=== PATIENT | female | born 1935 | race Caucasian/White ===

== ENCOUNTER 2017-07-27 16:21 | Inpatient (IN) ==
[2017-07-27] MEDS: Ipratropium/Albuterol Neb 3 ML IH SCH (21:04)
[2017-07-27] MEDS ORDERED: Ondansetron ODT 4 MG TAB.RAPDIS SL PRN (21:33)
[2017-07-27] MEDS ORDERED: Acetaminophen 325 MG TABLET PO PRN (21:33)
[2017-07-27] MEDS ORDERED: Furosemide 40 MG/4 ML VIAL IVP SCH (21:45)
[2017-07-27] MEDS ORDERED: Furosemide 40 MG/4 ML VIAL IVP ONE (21:59)
--- NOTE | 2017-07-27 22:00 | Internal Med History&Physical ---
<MaikshelleymarinaLion allen - Last Filed: 07/27/17 23:18> Date of Encounter: 07/27/17 Time of Encounter: 20:30 Assessment and Plan (1) NSTEMI (non-ST elevated myocardial infarction) Current visit: Yes Status: Acute Patient began to c/o chest pain while here. She describes it in the same manner as the last one she had a few days ago. Lasted 15-20 min. Atypical chest pain symptoms, however new troponin level has risen to 2.13 from 0.09. No active chest pain as of now. - Heparin drip. - Consult to cardiology - Nitro PRN. - Morphine PRN - Plavix. - Atenolol. (2) Chest pain Current visit: Yes Status: Acute Patient was c/o an episode of atypical chest pain from the prior day. EKG shows no ST-elevations or acute ischemic changes when compared to prior one. She did have an elevated troponin of 0.09, however than is more likely due to a combination of her acute CHF exacerbation and PNA. MINO score of 2 which signifies an 8% risk at 14 days of: all-cause mortality, new or recurrent DE, or severe recurrent ischemia requiring urgent revascularization. - Echocardiogram. Update: Patient began to feel chest pain again in the same manner as she described to me last time. It lasted for 15-20 minutes while resting. She did not have any active chest pain when I went to reexamine her, although she did have reproducible chest tenderness with palpation of R chest. She also admits ot tenderness with deep inspirations. Troponin level christiano to 2.13 from 0.09. NSTEMI. - consult to cardiology. - Heparin drip. - Nitro PRN. - Morphine PRN. - Plavix. Qualifiers: Chest pain type: unspecified Qualified Code(s): R07.9 - Chest pain, unspecified (3) Elevated troponin Current visit: No Status: Acute Troponin of 0.09 on arrival. No complaints of chest pain on arrival. Most likely secondary to setting of PNA and CHF. Update: Patient's set of troponin has risen to 2.13. She told me that she was experiencing chest tightness for about 15-20 minutes in the same location (R lower chest) as last time. I will place her on a heparin drip for now along with nitro PRN and a consult to cardiology. Will continue to monitor troponins and patient's status. (4) Acute CHF (congestive heart failure) Current visit: Yes Status: Acute Patient has been having increased SOB and productive coughing for the past week. She has bilateral pitting edema. No JVD. CXR shows collection of fluid in the R lung in the central sulcus. No recent echocardiogram found in records. - Fluid restriction diet. - Lasix 40 mg IV qd. - Monitor I/O. Qualifiers: Congestive heart failure type: unspecified congestive heart failure type Qualified Code(s): I50.9 - Heart failure, unspecified (5) Pneumonia Current visit: No Status: Acute Chest CTA shows new L onset pleural effusion. Patient displayed wheezing bilaterally on exam, most prominent in the L lower posterior region. Current febrile. Does not meet criteria for SIRS or sepsis. - Zosyn IV. Qualifiers: Pneumonia type: due to unspecified organism Laterality: bilateral Lung location: lower lobe of lung Qualified Code(s): J18.9 - Pneumonia, unspecified organism (6) COPD exacerbation Current visit: Yes Status: Acute Patient has extensive history of COPD. Has a productive cough that has been getting worse for past week. She has SOB with low O2 sats on arrival. Her acute exacerbation was probably caused by development of PNA. - Duonebs q4hr. - Solu-medrol 60 mg IV q6hr. (7) Hypertension Current visit: Yes Status: Chronic BP controlled at 113/90. - Continue home medication of atenolol. Qualifiers: Hypertension type: unspecified Qualified Code(s): I10 - Essential (primary ) hypertension (8) Hypomagnesemia Current visit: Yes Status: Acute Magnesium level at 1.5. - Mg 2g IV. - Recheck mg level. (9) Lung cancer Current visit: No Status: Acute Metastatic Adenocarcinoma of R lung. She is followed by oncology. Qualifiers: Laterality: right Lung location: unspecified part of lung Qualified Code( s): C34.91 - Malignant neoplasm of unspecified part of right bronchus or lung (10) DVT prophylaxis Current visit: Yes Status: Acute - Lovenox 30 mg sq qd. Update: switched to Heparin drip due to new development of NSTEMI. Internal Medicine - H&P: HPI Chief complaint: SOB, dyspnea, weakness Admitted From: Hospital to Hospital Transfer History of present illness: Ms. Darrel Maier is a 82 year old female with a PMH of emphysema. asthma, COPD , HTN, metastatic lung adenocarcinoma that presents for SOB, dyspnea, and weakness. Patient says that in the afternoon, she started to experience some exertional dyspnea while walking. She proceeded to the bathroom to sit down, but said she could never catch her breath or have the energy to get off the toilet. Her found her there after 5 hours. She denies any LOC, light- headedness, [place], or dizziness. She denies any chest or palpitations at the time. Although she normally has a chronic cough due to her COPD, she admits that this past week he coughing has been getting worse. She's been having a clear productive cough. She admits to a subjective fever. She says that she was hospitalized for PNA two weeks ago. She also says that her has been sick at home. Patient also told me that the day before she experienced an episode of epigastric pain that was sharp in nature, 5/10 in pain scale, non- radiation, lasted 2 hours, occurred with exertion, and was not relieved with rest. She presented to the ER with low O2 sat of 87%, tachypneic, and tachycardic. Patient did present with an elevated troponin of 0.09 and was transferred her from [facility] for further evaluation. She denies any dysuria, hematuria, constipation, hematochezia, diarrhea, nausea, or vomiting. Past Med Surg Social Fam HX - Past Medical History Medical history: arthritis, asthma, COPD, hypertension, kidney stones Psychiatric history: no psych history - Past Surgical History Surgical History: cataract, other - Social History Smoking Status: Never smoker Smokeless Tobacco Status: No Alcohol use: none Drug use: none - Family History Father Cause of : lung cancer Hx Family Endocrine Disorder: Yes (thyroid disease) Mother Cause of : lung cancer Hx Family Cardiac Disorders: Yes ([place]) Brother Adopted: No Cause of : lung cancer Internal Medicine - H&P: Meds Atenolol [Tenormin] 25 mg PO QAM 10/22/16 [History] Gabapentin [Neurontin] 200 mg PO HS 01/06/17 [History] Albuterol Sulfate [Ventolin Hfa] 2 puff IH Q4-6H PRN 03/12/17 [History] Budesonide/Formoterol 160/4.5 [Symbicort 160/4.5] 2 puff IH DAILY 03/12/17 [ History] Oxygen 1 each .ROUTE HS PRN 03/12/17 [History] Mirtazapine [Remeron] 15 mg PO HS 06/24/17 [History] Atenolol [Tenormin] 12.5 mg PO HS 07/08/17 [History] Calcium Carbonate [Calcium] 600 mg PO BID 07/08/17 [History] Cholecalciferol (D-3) [Vitamin D] 1,000 unit PO DAILY 07/08/17 [History] Multivitamin [One Daily Multivitamin] 1 tab PO DAILY 07/08/17 [History] Vitamin B Complex [B Complex] 1 tab PO DAILY 07/08/17 [History] Vitamin E Mixed [Vitamin E] 1,000 unit PO DAILY 07/08/17 [History] 3 Allergy/AdvReac Type Severity Reaction Status Date / Time aspirin Allergy Unknown BLEEDING Verified 07/08/17 11:49 ULCER lidocaine [From Lidoderm] AdvReac Redness of Verified 07/08/17 11:49 Skin All Systems PM: A 10-system review of systems was performed and is negative for pertinent findings except as documented above in the HPI. - Constitutional Constitutional: chills, fever(s), no falls - Cardiovascular Cardiovascular ROS IM: as per HPI, chest pain, dyspnea, dyspnea on exertion, no lightheadedness, no palpitations, no syncope - Respiratory Respiratory: cough, dyspnea on exertion, excessive phlegm production, no hemoptysis - Gastrointestinal Gastrointestinal: as per HPI, abdominal pain (One episode of epigastric pain. ) , no constipation, no diarrhea, no heartburn, no hematemesis, no hematochezia, no loose stools, no nausea, no vomiting - Genitourinary Genitourinary: no dysuria, no hematuria - Musculoskeletal Musculoskeletal ROS IM: muscle weakness - Neurological Neurological ROS: weakness, no confusion, no dizziness, no focal weakness, no headache(s), no numbness, no tingling - Constitutional Vitals: Temp Pulse Resp BP Pulse Ox 97.6 F 93 20 113/90 92 07/27/17 18:42 07/27/17 18:42 07/27/17 21:05 07/27/17 18:42 07/27/17 21:05 General appearance: Present: mild distress, A&O X 3, pleasant, underweight, answers questions appropriately - Respiratory Respiratory exam: Present: wheezes (Bilaterally. Most prevelant in L lower posterior lung field.) - Cardiovascular Cardiovascular exam: Present: tachycardia (Slightly tachycardic. ) - GI/Abdominal GI/Abdominal exam: Present: normal bowel sounds, soft. Absent: guarding, rebound, tenderness - Extremities Exam Extremities exam: Present: full ROM, normal capillary refill, pedal edema (+2 pitting edema bilaterally. ), radial pulses palpable and symmetrical. Absent: cyanotic, tenderness Additional comments: Pedal pulses intact and symmetrical bilaterally. - Neurological Exam Neurological exam: Present: alert, oriented X3, no focal deficits, strengths equal and symetr throughout. Absent: facial droop Additional comments: Unable to assess reflexes due to patient being tense. Internal Med - H&P Results - Labs CBC & Chem 7: 07/27/17 22:00 07/27/17 22:00 <Kiran Khoury - Last Filed: 07/28/17 03:44> Date of Encounter: 07/27/17 Internal Medicine - H&P: HPI History of present illness: Ms. Darrel Maier is a 82 year old female All Systems PM: A 10-system review of systems was performed and is negative for pertinent findings except as documented above in the HPI. - Constitutional Vitals: Temp Pulse Resp BP Pulse Ox 97.6 F 104 20 123/78 94 07/27/17 18:42 07/28/17 00:28 07/28/17 01:40 07/28/17 00:28 07/28/17 01:40 Internal Med - H&P Results - Labs CBC & Chem 7: 07/27/17 22:00 07/27/17 22:00 Labs: Short CBC 07/27/17 Range/Units 22:00 WBC 8.9 (4.3-11.1) K/mcL Hgb 11.4 L (11.5-15.4) g/dL Hct 37.4 (35.3-44.9) % Plt Count 270 (140-400) K/mcL Neutrophils # 8.1 (1.6-8.9) K/mcL BMP 07/27/17 22:00 Sodium 139 Potassium 4.4 Chloride 103 Carbon Dioxide 26 BUN 15 Creatinine 0.75 Glucose 96 Calcium 8.1 L Cardiac Enzymes 07/27/17 Range/Units 22:00 Troponin I 2.13 H* (0-0.03) ng/mL - Attending Attestation I have seen patient on July 27. Patient was seen independently and personally along with resident and an H&P reviewed and plan discussed. Patient has presented with shortness of breath. sHe is complaining of right sided subcostal chest pain which seems continuous and it is not pleuritic in nature. Chest examination showed some wheezing and scattered rhonchi. No significant leg edema. Her troponin have escalated suspect non-STEMI contributing to CHF as well as pneumonia and COPD exacerbation.
[2017-07-27 22:09] LABS: Basophils % 0.1 %; Eosinophils % 0.1 %; Hematocrit 37.4 % (35.3-44.9); Hemoglobin 11.4 g/dL (11.5-15.4); Immature Granulocytes % 0.5 % (0-4); Lymphocytes # 0.2 K/mcL (0.6-4.6); Mean Corpuscular HGB Conc 30.5 g/dL (31.6-35.5); Mean Corpuscular Hemoglobin 28.2 pg (28.0-33.3); Mean Corpuscular Volume 92.6 fL (83.0-100.0); Mean Platelet Volume 9.5 fL (9.4-12.4); Monocytes # 0.6 K/mcL (0.0-1.3); Monocytes % 6.9 %; Neutrophils # 8.1 K/mcL (1.6-8.9); Platelet Count 270 K/mcL (140-400); Red Blood Count 4.04 M/mcL (3.82-4.97); Red Cell Distribution Width 13.9 % (11.5-14.5); Segmented Neutrophils % 90.4 %
[2017-07-27 22:20] LABS: BUN/Creatinine Ratio 20 (6-26); Blood Urea Nitrogen 15 mg/dL (7-20); Calcium 8.1 mg/dL (8.6-10.8); Carbon Dioxide 26 mEq/L (19-29); Chloride 103 mEq/L (98-109); Glucose 96 mg/dL (70-99); Osmolality,Calculated 289 (280-300); Potassium 4.4 mEq/L (3.5-4.5); Sodium 139 mEq/L (136-145); eGFR For African Americans > 60 (> 60); eGFR For Non-African Americans > 60 (> 60)
[2017-07-27 22:29] LABS: Hypersegmented Neutrophils Present (Not Present); Platelet Estimate Normal (Normal)
[2017-07-27] MEDS: Gabapentin 100 MG CAPSULE PO SCH (22:40)
[2017-07-27] MEDS: Mirtazapine 15 MG TABLET PO SCH (22:41)
[2017-07-27] MEDS: Vitamin B Complex/Vit C/Vit E 1 EACH TABLET PO SCH (22:44)
[2017-07-27] MEDS: Cholecalciferol (D-3) 1,000 UNIT TABLET PO SCH (22:44)
[2017-07-27] MEDS ORDERED: Nitroglycerin 0.4 MG TAB.SUBL SL PRN (23:06)
[2017-07-27] MEDS ORDERED: Heparin 25,000 UNIT/500 ML D5W 25,000 UNIT/500 ML BAG IVC SCH ×2 (23:15→23:45)
[2017-07-27] MEDS ORDERED: *HR* Morphine 2 MG/ML SYRINGE IVP PRN (23:17)
[2017-07-27] MEDS ORDERED: Naloxone 0.4 MG/ML INJ IVP PRN (23:17)
[2017-07-27] MEDS ORDERED: *HR* Heparin 5,000 UNIT/ML VIAL IVP ONE (23:42)
[2017-07-27] MEDS ORDERED: *HR* Heparin 5,000 UNIT/ML VIAL IVP PRN (23:42)
[2017-07-27] MEDS: Multivit/Ca/Min/Fe/FA 1 TAB TABLET PO SCH (23:53)
[2017-07-27] MEDS: methylPREDNISolone 125 MG/2 ML VIAL IVP SCH (23:53)
[2017-07-28 00:04] LABS: INR 1.2; Prothrombin Time 12.7 Seconds (9.4-12.1)
[2017-07-28 00:06] LABS: Activated Partial Thrombo Time 27.7 Seconds (26.0-36.0)
[2017-07-28] MEDS: Piperacillin/Tazobactam 3.375 GM/200 ML BAG IVPB SCH ×2 (00:48→09:13)
[2017-07-28] MEDS: Ipratropium/Albuterol Neb 3 ML IH SCH ×7 (01:40→23:38)
[2017-07-28] MEDS ORDERED: *HR* Enoxaparin 30 MG/0.3 ML SYRINGE SQ SCH (06:00)
[2017-07-28] MEDS: methylPREDNISolone 125 MG/2 ML VIAL IVP SCH (06:22)
[2017-07-28] MEDS: *HR* Heparin 5,000 UNIT/ML VIAL IVP PRN ×2 (07:02→14:27)
[2017-07-28] MEDS: Multivit/Ca/Min/Fe/FA 1 TAB TABLET PO SCH (09:05)
[2017-07-28] MEDS: Cholecalciferol (D-3) 1,000 UNIT TABLET PO SCH (09:05)
[2017-07-28] MEDS: Vitamin B Complex/Vit C/Vit E 1 EACH TABLET PO SCH (09:06)
--- NOTE | 2017-07-28 09:51 | Cardiology Consult Note ---
Date of Encounter: 07/28/17 Time of Encounter: 09:51 Assessment and Plan (1) NSTEMI (non-ST elevated myocardial infarction) Current Visit: Yes Status: Acute Troponins 0.09, 2.13, 1.53, 1.25--downtrending. In setting of PNA/COPD exacerbation. Hypoxic SpO2 87% on admission, tachypnea, tachycardia. However, would not have expected troponin to rise to extent of 2.13 if secondary to demand ischemia only. No significant EKG changes. Worsening dyspnea, weakness. Reports episodic chest pain under right breast that feels like a muscle spasm. Currently chest pain free. Echo resulted--LVEF 65%, normal wall motion, Mild left ventricular diastolic dysfunction, Normal right ventricular structure and function, Mild tricuspid regurgitation, Mild pulmonary hypertension. BP as low as 80s systolic this AM. Hold Lasix and BB. Code status is DNR-CC. Discussed potential LHC, which pt is agreeable to having. Currently with conversational dyspnea. Continue heparin gtt, start Statin, BB as BP tolerates, Plavix was started. ASA not started due to listed allergy--reaction listed is bleeding ulcers. Will need to further discuss this reaction prior to invasive evaluation. Possible LHC once respiratory status allow. Will further discuss with Dr. Pa as well. (2) Hypotension Current Visit: Yes Status: Acute BP as low as 85/59. Improved at bedside to 90s. Recommend holding Lasix and BB. Qualifiers: Hypotension type: unspecified hypotension type Qualified Code(s): I95.9 - Hypotension, unspecified Discussion w patient/family: The assessment and plan as outlined above was discussed with the patient and/or family members who expressed understanding and agreement. All questions were answered. Thank you for involving us in the care of your patient. Please call with any questions. I will discuss all the above with Dr. Pa and make changes as necessary. History of Present Illness Consult date: 07/28/17 Requesting physician: Kiran Khoury Consult reason: NSTEMI Chief complaint: dyspnea History of present illness: Ms. Darrel Maier is a 82 year old female with a PMH of emphysema, asthma, COPD , HTN, metastatic lung adenocarcinoma s/p completion of chemoradiation 02/2017 that presented to ED for dyspnea and weakness. Patient says that in the afternoon, she started to experience some exertional dyspnea while walking. She proceeded to the bathroom to sit down, but said she could never catch her breath or have the energy to get off the toilet. Her found her there after 5 hours. She denies any syncope or chest pain. Although she normally has a chronic cough due to her COPD, she admits that this past week he coughing has been getting worse. She's been having a clear productive cough. She reports worsening lower extremity edema over the past week. She admits to a subjective fever. She says that she was hospitalized for PNA two weeks ago. She also says that her has been sick at home. Patient reported the day before she experienced an episode of pain under her right breast that felt like a muscle spasm. She presented to the ER with low O2 sat of 87%, tachypneic, and tachycardic. She is being treated for PNA and COPD exacerbation. Troponins 0.09 , 2.13 1.53, 1.25. Cardiology consulted for further recommendations. She is currently chest pain free. Echo resulted-- LVEF 65%, Mild left ventricular diastolic dysfunction, Normal right ventricular structure and function, Mild tricuspid regurgitation, Mild pulmonary hypertension. Chest CTA negative for PE , stable mild cardiomegaly, mild emphysema. CXR stable small to moderate right pleural effusion. There is also stable appearance to consolidative changes to the right mid to lower lung zones. These could reflect posttreatment changes relating to radiation therapy given clinical history and relative stability from 06/19/2017. It would be difficult to exclude other superimposed etiologies such as infectious or inflammatory infiltrate and/or neoplastic process. Past Med Surg Social Fam HX - Past Medical History Medical history: arthritis, asthma, COPD, hypertension, kidney stones Psychiatric history: no psych history - Past Surgical History Surgical History: cataract, other - Social History Smoking Status: Never smoker Smokeless Tobacco Status: No Alcohol use: none Drug use: none - Family History Father Cause of : lung cancer Hx Family Endocrine Disorder: Yes (thyroid disease) Mother Cause of : lung cancer Hx Family Cardiac Disorders: Yes ([place]) Brother Adopted: No Cause of : lung cancer Medications and Allergies Atenolol [Tenormin] 25 mg PO QAM 10/22/16 [History] Gabapentin [Neurontin] 200 mg PO HS 01/06/17 [History] Albuterol Sulfate [Ventolin Hfa] 2 puff IH Q4-6H PRN 03/12/17 [History] Budesonide/Formoterol 160/4.5 [Symbicort 160/4.5] 2 puff IH DAILY 03/12/17 [ History] Oxygen 1 each .ROUTE HS PRN 03/12/17 [History] Mirtazapine [Remeron] 15 mg PO HS 06/24/17 [History] Atenolol [Tenormin] 12.5 mg PO HS 07/08/17 [History] Calcium Carbonate [Calcium] 600 mg PO BID 07/08/17 [History] Cholecalciferol (D-3) [Vitamin D] 1,000 unit PO DAILY 07/08/17 [History] Multivitamin [One Daily Multivitamin] 1 tab PO DAILY 07/08/17 [History] Vitamin B Complex [B Complex] 1 tab PO DAILY 07/08/17 [History] Vitamin E Mixed [Vitamin E] 1,000 unit PO DAILY 07/08/17 [History] 3 Allergy/AdvReac Type Severity Reaction Status Date / Time aspirin Allergy Unknown BLEEDING Verified 07/08/17 11:49 ULCER lidocaine [From Lidoderm] AdvReac Redness of Verified 07/08/17 11:49 Skin All Systems Review: A 10-system review of systems was performed and is negative for pertinent findings except as documented above in the HPI. - Constitutional Constitutional: weakness - Cardiovascular Cardiovascular: as per HPI, chest pain at rest, dyspnea at rest, dyspnea on exertion, leg edema - Respiratory Respiratory: cough, dyspnea Physical Examination Vital Signs, Last 4 Hours Temp Pulse Resp BP Pulse Ox 07/28/17 07:34 20 95 07/28/17 06:31 98.1 F 99 16 85/59 95 Vital Signs Temp Pulse Resp BP Pulse Ox 07/28/17 07:34 20 95 07/28/17 06:31 98.1 F 99 16 85/59 95 07/28/17 04:55 20 91 07/28/17 03:50 97 20 101/66 99 07/28/17 01:40 20 94 07/28/17 00:28 104 20 123/78 93 07/27/17 21:05 20 92 07/27/17 18:42 97.6 F 93 17 113/90 Intake and Output 07/27/17 07/28/1717 23:59 07:59 15:59 Intake Total 266 / 266 0 / 0 Output Total 1100 / 1100 2099 / 2099 Balance -1100 / -1100 -1834 / -1834 0 / 0 Intake: IV Fluids 266 / 266 Heparin 25,000 UNIT/500 ML D5W 66 / 66 25,000 unit In 500 ml @ 12 UNIT /KG/HR 10.896 mls/hr IVC .Q24H [facility] Rx#:[id number] Zosyn Premix 3.375 GM/200 ML 3. 200 / 200 375 gm In 200 ml @ 50 mls/hr IVPB Q8HR [facility] Rx#:[id number] Oral 0 / 0 Output: Urine 1100 / 1100 Catheter 2099 / 2099 Urethral (Alan) 850 / 850 Other: Meal Breakfast Percent of Meal Consumed 0% Stool Size Large Stool Consistency formed Stool Color Brown # Voids 1 # Bowel Movements 1 Weight 45.4 kg General: Conversant, Other (conversational dyspnea) HEENT: Atraumatic, Normocephaly, Mucus Membranes Moist Neck: Normal carotid pulses Cardiac: Reg Rate and Rhythm, Normal S1 and S2, No Murmur Lungs: Other (diminished) Neuro: Alert and responsive, No focal deficits noted Abdomen: Soft, Non-Tender Skin: No rashes noted on visualized skin Musculoskeletal: No Chest Wall Tenderness Extremities: No Clubbing, No Cyanosis, Other (trace LE edema) Results 07/27/17 22:00 07/27/17 22:00 Lab Results 07/27/17 07/27/17 07/27/17 22:00 22:00 22:00 WBC 8.9 Hgb 11.4 L Hct 37.4 Plt Count 270 INR APTT Sodium 139 Potassium 4.4 Chloride 103 Carbon Dioxide 26 BUN 15 Creatinine 0.75 Glucose 96 Calcium 8.1 L Magnesium 1.5 L Troponin I 07/27/17 07/27/17 07/28/17 22:00 22:00 03:31 WBC Hgb Hct Plt Count INR 1.2 APTT 27.7 Sodium Potassium Chloride Carbon Dioxide BUN Creatinine Glucose Calcium Magnesium Troponin I 2.13 H* 1.53 H* 07/28/17 07/28/17 07/28/17 03:31 05:57 05:57 WBC Hgb Hct Plt Count INR APTT 50.0 H D Sodium Potassium Chloride Carbon Dioxide BUN Creatinine Glucose Calcium Magnesium 2.0 Troponin I 1.25 H* Short CBC 07/27/17 Range/Units 22:00 WBC 8.9 (4.3-11.1) K/mcL Hgb 11.4 L (11.5-15.4) g/dL Hct 37.4 (35.3-44.9) % Plt Count 270 (140-400) K/mcL Neutrophils # 8.1 (1.6-8.9) K/mcL BMP 07/27/17 Range/Units 22:00 Sodium 139 (136-145) mEq/L Potassium 4.4 (3.5-4.5) mEq/L Chloride 103 (98-109) mEq/L Carbon Dioxide 26 (19-29) mEq/L BUN 15 (7-20) mg/dL Creatinine 0.75 (0.57-1.11) mg/dL Glucose 96 (70-99) mg/dL Calcium 8.1 L (8.6-10.8) mg/dL Cardiac Enzymes 07/28/17 07/28/17 07/27/17 Range/Units 05:57 03:31 22:00 Troponin I 1.25 H* 1.53 H* 2.13 H* (0-0.03) ng/mL Impressions Echocardiogram 07/28/17 21:44 Impressions: LVEF 65%. Mild left ventricular diastolic dysfunction. Normal right ventricular structure and function. Mild tricuspid regurgitation. Mild pulmonary hypertension. Left Ventricular Wall Motion: Rest Echo Findings All wall segments showed normal motion. Findings: Study Quality * Technically adequate exam. ECG Findings * Sinus tachycardia. Left Ventricle * LVEF 65%. * Mild left ventricular diastolic dysfunction. * Normal LV size and wall thickness. Right Ventricle * Normal right ventricular structure and function. Left Atrium * Normal left atrial size. Right Atrium * Normal right atrial size. Aortic Valve * No aortic regurgitation. * Aortic valve not well visualized. * No aortic stenosis. Mitral Valve * No mitral regurgitation. * No mitral stenosis. * Mildly sclerotic mitral valve leaflets. Tricuspid Valve * Normal tricuspid valve structure. * Mild tricuspid regurgitation. * Estimated RA pressure is 3 mmHg. * Estimated RVSP is 45 mmHg. * Mild pulmonary hypertension. Pulmonic Valve * Pulmonic valve is not well visualized. * No pulmonic stenosis. * No pulmonic regurgitation. Pulmonary Artery * Pulmonary artery not well visualized. Aorta * Not well visualized. Pericardium * There is no pericardial effusion present. Interatrial Septum * No evidence of PFO by color Doppler. IVC * Normal IVC dimensions and inspiratory collapse. Active Medications Acetaminophen (Tylenol) 650 mg PO Q6HR PRN PRN Reason: Mild Pain (1-3) Stop: 01/26/18 21:34 Albuterol/Ipratropium (Duoneb) 3 ml IH [id number] [facility] Stop: 01/26/18 21:01 Last Admin: 07/28/17 07:33 Dose: 3 ml Atenolol (Tenormin) 12.5 mg PO HS [facility] Stop: 01/26/18 22:01 Last Admin: 07/27/17 22:45 Dose: Not Given Atenolol (Tenormin) 25 mg PO QAM [facility] Stop: 01/26/18 22:01 Last Admin: 07/27/17 22:45 Dose: Not Given Calcium Carbonate (Tums) 500 mg PO BID [facility] Stop: 01/26/18 22:01 Last Admin: 07/28/17 09:05 Dose: 500 mg Clopidogrel Bisulfate (Plavix) 75 mg PO DAILY [facility] Stop: 01/26/18 21:46 Last Admin: 07/28/17 09:05 Dose: 75 mg Docusate Sodium (Colace) 100 mg PO BID PRN PRN Reason: Constipation Stop: 01/26/18 21:34 Furosemide (Lasix) 40 mg IVP DAILY [facility] Stop: 01/26/18 21:46 Last Admin: 07/27/17 22:40 Dose: Not Given Gabapentin (Neurontin) 200 mg PO HS [facility] Stop: 01/26/18 22:01 Last Admin: 07/27/17 22:40 Dose: 200 mg Heparin Sodium (Porcine) (Heparin) 2,700 unit 60 unit/kg (2700 unit) IVP Q6HR PRN PRN Reason: SEE COMMENTS Stop: 01/26/18 23:43 Heparin Sodium (Porcine) (Heparin) 1,400 unit 30 unit/kg (1400 unit) IVP Q6H PRN PRN Reason: SEE COMMENTS Stop: 01/26/18 23:43 Last Admin: 07/28/17 07:02 Dose: 1,400 unit Piperacillin Sod/Tazobactam Sod (Zosyn Premix 3.375 Gm/200 Ml) 3.375 gm in 200 mls @ 50 mls/hr IVPB Q8HR [facility] Stop: 01/27/18 00:01 Last Admin: 07/28/17 09:13 Dose: 50 mls/hr Heparin Sodium/Dextrose (Heparin 25,000 Unit/500 Ml D5w) 25,000 unit in 500 mls @ 10.896 mls/hr IVC .Q24H [facility]; 12 UNIT/KG/HR PRN Reason: Protocol Stop: 01/26/18 23:46 Last Titration: 07/28/17 06:57 Dose: 14.09 unit/kg/hr, 12.8 mls/hr Methylprednisolone (Solu-Medrol) 60 mg IVP Q6HR [facility] Stop: 01/27/18 00:01 Last Admin: 07/28/17 06:22 Dose: 60 mg Mirtazapine (Remeron) 15 mg PO HS [facility] Stop: 01/26/18 22:01 Last Admin: 07/27/17 22:41 Dose: 15 mg Morphine Sulfate (Morphine Sulfate) 2 mg IVP Q4HR PRN PRN Reason: Severe Pain (7-10) Stop: 01/26/18 23:18 Multivitamins/Calcium (Thera M Plus) 1 tab PO DAILY [facility] Stop: 01/26/18 22:01 Last Admin: 07/28/17 09:05 Dose: 1 tab Naloxone HCl (Narcan) 0.4 mg IVP Q2MIN PRN PRN Reason: Opioid Reversal Stop: 01/26/18 23:18 Nitroglycerin (Nitroglycerin) 0.4 mg SL Q5MIN PRN PRN Reason: Chest Pain Stop: 01/26/18 23:07 Ondansetron HCl (Zofran Odt) 4 mg SL Q8HR PRN PRN Reason: Nausea And Vomiting Stop: 01/26/18 21:34 Vitamin B Complex/Vit C/Vit E (Stresstab) 1 each PO DAILY [facility] Stop: 01/26/18 22:01 Last Admin: 07/28/17 09:06 Dose: 1 each Vitamin D (Vitamin D) 1,000 unit PO DAILY [facility] Stop: 01/26/18 22:01 Last Admin: 07/28/17 09:05 Dose: 1,000 unit Vitamin E (Vitamin E) 1,000 unit PO DAILY [facility] Stop: 01/26/18 22:01 Last Admin: 07/28/17 09:29 Dose: Not Given - Imaging and Cardiology Echo: report reviewed - EKG Interpretation EKG results cardiology: personally reviewed Consult Discharge Plan - Plan Referrals: Thuan Levine MD [Primary Care Provider] - 08/04/17 3:30 pm
--- NOTE | 2017-07-28 12:38 | Internal Med Progress Note ---
Date of Encounter: 07/28/17 Time of Encounter: 10:00 - Assessment and plan (1) NSTEMI (non-ST elevated myocardial infarction) Current Visit: Yes Status: Acute Assessment and plan: The patient has been started on a heparin drip. She is on a beta jatin and Plavix and statin. Cardiology is following with plans for left heart catheterization at some point after she is done with the acute issues over pneumonia. (2) Pneumonia Current Visit: Yes Status: Acute Assessment and plan: The patient's culture have been negative. She is afebrile. She has no white count. She did have infiltrate on her CT scan that was done at outside facility. For now switch her antibiotics to IV Levaquin. Continue to monitor follow-up on the cultures. Check urine strep and urine Legionella. Will check sputum culture if she is able to give us a sample. Qualifiers: Pneumonia type: due to unspecified organism Laterality: bilateral Lung location: unspecified part of lung Qualified Code(s): J18.9 - Pneumonia, unspecified organism (3) Acute CHF (congestive heart failure) Current Visit: Yes Status: Acute Assessment and plan: The patient has been on diuresis. She is gotten Lasix and diuresed well. We will continue to monitor I& rn lpn cna following. Echo is done O's. Hold her Lasix this morning secondary to low blood pressure. Try to wean her off oxygen as tolerated. We will continue with nebulizer treatment. Echo was done with EF 65% and mild diastolic dysfunction as well as moderate tricuspid regurgitation and mild pulmonary hypertension. Qualifiers: Congestive heart failure type: unspecified congestive heart failure type Qualified Code(s): I50.9 - Heart failure, unspecified (4) Hypotension Current Visit: Yes Status: Acute Assessment and plan: Hold atenolol as well as Lasix this morning. Qualifiers: Hypotension type: unspecified hypotension type Qualified Code(s): I95.9 - Hypotension, unspecified (5) DVT prophylaxis Current Visit: Yes Status: Acute Assessment and plan: Heparin drip. - Subjective Interval history: No acute events. The patient was admitted last night with NSTEMI as well as pneumonia and acute CHF. She currently has no chest pain. She says her swelling in the lower extremities much improved. She diuresed well overnight. Her blood pressure is on the lower side this morning. She was seen by cardiology ready. She is on a heparin drip. She has been afebrile. - Constitutional Vitals: Temp Pulse Resp BP Pulse Ox 97.9 F 102 16 96/44 94 07/28/17 11:09 07/28/17 11:09 07/28/17 11:09 07/28/17 11:09 07/28/17 11:09 General appearance: Present: mild distress, A&O X 3, pleasant, underweight, answers questions appropriately Exam: GEN: NAD CVS: RRR. S1, S2, No m/r/g RESP: Diminished. Bibasilar crackles. ABD: Soft, NT, ND, +BS EXT: Trace edema. edema. 2+ DP, No rashes NEURO: Nonfocal Internal Medicine: Result - Labs CBC & Chem 7: 07/27/17 22:00 07/27/17 22:00 Labs: Short CBC 07/27/17 Range/Units 22:00 WBC 8.9 (4.3-11.1) K/mcL Hgb 11.4 L (11.5-15.4) g/dL Hct 37.4 (35.3-44.9) % Plt Count 270 (140-400) K/mcL Neutrophils # 8.1 (1.6-8.9) K/mcL BMP 07/27/17 22:00 Sodium 139 Potassium 4.4 Chloride 103 Carbon Dioxide 26 BUN 15 Creatinine 0.75 Glucose 96 Calcium 8.1 L Cardiac Enzymes 07/27/17 07/28/17 07/28/17 Range/Units 22:00 03:31 05:57 Troponin I 2.13 H* 1.53 H* 1.25 H* (0-0.03) ng/mL - ABG Interpretation ABG results: PT/INR, D-dimer PT 12.7 Seconds (9.4-12.1) H 07/27/17 22:00 - Impressions Impressions Echocardiogram 07/28/17 21:44 Impressions: LVEF 65%. Mild left ventricular diastolic dysfunction. Normal right ventricular structure and function. Mild tricuspid regurgitation. Mild pulmonary hypertension. Left Ventricular Wall Motion: Rest Echo Findings All wall segments showed normal motion. Findings: Study Quality * Technically adequate exam. ECG Findings * Sinus tachycardia. Left Ventricle * LVEF 65%. * Mild left ventricular diastolic dysfunction. * Normal LV size and wall thickness. Right Ventricle * Normal right ventricular structure and function. Left Atrium * Normal left atrial size. Right Atrium * Normal right atrial size. Aortic Valve * No aortic regurgitation. * Aortic valve not well visualized. * No aortic stenosis. Mitral Valve * No mitral regurgitation. * No mitral stenosis. * Mildly sclerotic mitral valve leaflets. Tricuspid Valve * Normal tricuspid valve structure. * Mild tricuspid regurgitation. * Estimated RA pressure is 3 mmHg. * Estimated RVSP is 45 mmHg. * Mild pulmonary hypertension. Pulmonic Valve * Pulmonic valve is not well visualized. * No pulmonic stenosis. * No pulmonic regurgitation. Pulmonary Artery * Pulmonary artery not well visualized. Aorta * Not well visualized. Pericardium * There is no pericardial effusion present. Interatrial Septum * No evidence of PFO by color Doppler. IVC * Normal IVC dimensions and inspiratory collapse. Consult Discharge Plan - Plan Referrals: Thuan Levine MD [Primary Care Provider] - 08/04/17 3:30 pm
[2017-07-28] MEDS: Levofloxacin 500 MG/100 ML 500 MG/100 ML BAG IVPB SCH (12:40)
[2017-07-28] MEDS: Gabapentin 100 MG CAPSULE PO SCH (21:40)
[2017-07-28] MEDS: Mirtazapine 15 MG TABLET PO SCH (21:40)
[2017-07-29] MEDS: Ipratropium/Albuterol Neb 3 ML IH SCH ×6 (03:31→23:10)
[2017-07-29 06:15] LABS: Basophils % 0.1 %; Eosinophils % 0.2 %; Hemoglobin 9.5 g/dL (11.5-15.4); Immature Granulocytes % 0.3 % (0-4); Lymphocytes # 0.3 K/mcL (0.6-4.6); Lymphocytes % 3.2 %; Mean Corpuscular HGB Conc 30.6 g/dL (31.6-35.5); Mean Corpuscular Hemoglobin 28.3 pg (28.0-33.3); Mean Corpuscular Volume 92.3 fL (83.0-100.0); Mean Platelet Volume 10.4 fL (9.4-12.4); Neutrophils # 7.4 K/mcL (1.6-8.9); Platelet Count 245 K/mcL (140-400); Red Blood Count 3.36 M/mcL (3.82-4.97); Red Cell Distribution Width 14.3 % (11.5-14.5); Segmented Neutrophils % 85.2 %
[2017-07-29 06:29] LABS: BUN/Creatinine Ratio 24 (6-26); Blood Urea Nitrogen 17 mg/dL (7-20); Calcium 8.1 mg/dL (8.6-10.8); Carbon Dioxide 33 mEq/L (19-29); Chloride 102 mEq/L (98-109); Glucose 92 mg/dL (70-99); Osmolality,Calculated 295 (280-300); Phosphorous 3.2 mg/dL (2.3-4.7); Potassium 3.7 mEq/L (3.5-4.5); Sodium 142 mEq/L (136-145); eGFR For African Americans > 60 (> 60); eGFR For Non-African Americans > 60 (> 60)
[2017-07-29] MEDS: Vitamin B Complex/Vit C/Vit E 1 EACH TABLET PO SCH (09:43)
[2017-07-29] MEDS: Cholecalciferol (D-3) 1,000 UNIT TABLET PO SCH (09:44)
[2017-07-29] MEDS: Multivit/Ca/Min/Fe/FA 1 TAB TABLET PO SCH (09:44)
--- NOTE | 2017-07-29 10:11 | Cardiology Progress Note ---
Date of Encounter: 07/29/17 Time of Encounter: 10:10 Assessment and Plan (1) NSTEMI (non-ST elevated myocardial infarction) Current Visit: Yes Status: Acute Troponins 0.09, 2.13, 1.53, 1.25--downtrending. In setting of PNA/COPD exacerbation. Hypoxic SpO2 87% on admission, tachypnea, tachycardia. However, would not have expected troponin to rise to extent of 2.13 if secondary to demand ischemia only. No significant EKG changes. Worsening dyspnea, weakness. Reports episodic chest pain under right breast that feels like a muscle spasm. Currently chest pain free. Echo -LVEF 65%, normal wall motion, mild LVDD, Normal right ventricular structure and function, Mild TR, mild phtn. BP as low as 70s systolic this AM. Hold Lasix and BB until BP tolerates. Code status is DNR-CC. Dr. Pa further discussed with pt yesterday and pt wanted medical management, declined invasive procedures. Today, she states she may want to have a LHC. Will have pt further re-discuss with Dr. Pa on LHC vs medical management. Has been on heparin gtt >24 hours. HGB dropped from 11.4 to 9.5. No evidence of bleeding. Will stop heparin gtt given anemia and switch to subq DVT prophylaxis. Continue Statin, BB as BP tolerates, Plavix was started. ASA not started due to listed allergy--reaction listed is bleeding ulcers. If pt wants invasive evaluation can consider trial of daily ASA. (2) Hypotension Current Visit: Yes Status: Resolved BP as low as 70s/50s this AM. Asymptomatic. Recommend holding Lasix and BB until BP tolerates. Qualifiers: Hypotension type: unspecified hypotension type Qualified Code(s): I95.9 - Hypotension, unspecified (3) PAF (paroxysmal atrial fibrillation) Current Visit: Yes Status: Acute Two brief runs of PAF noted on tele. No hx of PAF, in setting of PNA and NSTEMI. Currently on heparin gtt, but HGB has dropped from 11.4 to 9.5. In setting of anemia, will stop heparin gtt. Start subq DVT prophylaxis. Continue Plavix. BP currently not tolerating BB. Echo EF preserved. No severe valvular dysfunction. [id number] 3 (Age, Female). High CVA risk, but the two episodes were very brief. Given anemia, continue Plavix only for now. 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 Discussion w patient/family: The assessment and plan as outlined above was discussed with the patient and/or family members who expressed understanding and agreement. All questions were answered. Thank you for involving us in the care of your patient. Please call with any questions. I will discuss all the above with Dr. Pa and make changes as necessary. Subjective Principal diagnosis: NSTEMI Interval history: Pt denies chest pain overnight, still reports dyspnea, hypotensive this AM but denies dizziness or lightheadedness. Objective Vital Signs, Last 4 Hours Temp Pulse Resp BP Pulse Ox 07/29/17 07:29 18 98 07/29/17 06:57 97.9 F 93 16 84/50 95 Vital Signs Temp Pulse Resp BP Pulse Ox 07/29/17 07:29 18 98 07/29/17 06:57 97.9 F 93 16 84/50 95 07/29/17 04:06 100 16 87/53 99 07/29/17 03:32 18 100 07/29/17 00:09 101 18 95/63 99 07/28/17 23:40 20 100 07/28/17 21:40 99 07/28/17 20:34 18 95 07/28/17 19:38 98.3 F 113 19 82/53 93 07/28/17 15:50 18 93 07/28/17 14:48 98.3 F 107 16 114/78 96 07/28/17 11:09 97.9 F 102 16 96/44 94 Intake and Output 07/28/17 07/29/17 07/29/17 23:59 07:59 15:59 Intake Total 92 / 92 0 / 0 480 / 480 Balance 92 / 92 0 / 0 480 / 480 Intake: IV Fluids 92 / 92 0 / 0 Heparin 25,000 UNIT/500 ML D5W 92 / 92 0 / 0 25,000 unit In 500 ml @ 12 UNIT /KG/HR 10.896 mls/hr IVC .Q24H [facility] Rx#:[id number] Oral 480 / 480 Other: Meal Breakfast Percent of Meal Consumed 50% General: Conversant, No Apparent Distress HEENT: Atraumatic, Normocephaly, Mucus Membranes Moist Neck: Normal carotid pulses Cardiac: Reg Rate and Rhythm, Normal S1 and S2, No Murmur Lungs: Other (diminished, mild bibasilar crackles) Neuro: Alert and responsive, No focal deficits noted Abdomen: Soft, Non-Tender Skin: No rashes noted on visualized skin Musculoskeletal: No Chest Wall Tenderness Extremities: No Clubbing, No Cyanosis, No Edema, Normal Pulses Results 07/29/17 04:57 07/29/17 04:57 Lab Results 07/28/17 07/28/17 07/29/17 12:07 20:23 04:57 WBC 8.7 Hgb 9.5 L D Hct 31.0 L Plt Count 245 APTT 56.9 H 73.6 H Sodium Potassium Chloride Carbon Dioxide BUN Creatinine Glucose Calcium 07/29/17 07/29/17 04:57 04:57 WBC Hgb Hct Plt Count APTT 84.2 H Sodium 142 Potassium 3.7 Chloride 102 Carbon Dioxide 33 H BUN 17 Creatinine 0.70 Glucose 92 Calcium 8.1 L Short CBC 07/29/17 Range/Units 04:57 WBC 8.7 (4.3-11.1) K/mcL Hgb 9.5 L D (11.5-15.4) g/dL Hct 31.0 L (35.3-44.9) % Plt Count 245 (140-400) K/mcL Neutrophils # 7.4 (1.6-8.9) K/mcL BMP 07/29/17 Range/Units 04:57 Sodium 142 (136-145) mEq/L Potassium 3.7 (3.5-4.5) mEq/L Chloride 102 (98-109) mEq/L Carbon Dioxide 33 H (19-29) mEq/L BUN 17 (7-20) mg/dL Creatinine 0.70 (0.57-1.11) mg/dL Glucose 92 (70-99) mg/dL Calcium 8.1 L (8.6-10.8) mg/dL Impressions Chest X-Ray 07/28/17 18:53 IMPRESSION: Persistent basilar airspace disease and effusion greater on the right presumably representing pneumonia. This could be postobstructive and is superimposed upon significant interstitial fibrosis and emphysema. D/ / Sandro Gordon MD / Sandro Gordon MD Interpreting Provider: Sandro Gordon MD Active Medications Acetaminophen (Tylenol) 650 mg PO Q6HR PRN PRN Reason: Mild Pain (1-3) Stop: 01/26/18 21:34 Albuterol/Ipratropium (Duoneb) 3 ml IH [id number] [facility] Stop: 01/26/18 21:01 Last Admin: 07/29/17 07:27 Dose: 3 ml Atenolol (Tenormin) 12.5 mg PO HS [facility] Stop: 01/26/18 22:01 Last Admin: 07/28/17 21:40 Dose: Not Given Atenolol (Tenormin) 25 mg PO QAM [facility] Stop: 01/26/18 22:01 Last Admin: 07/29/17 09:39 Dose: Not Given Atorvastatin Calcium (Lipitor) 40 mg PO HS [facility] Stop: 01/27/18 21:01 Last Admin: 07/28/17 21:40 Dose: 40 mg Calcium Carbonate (Tums) 500 mg PO BID [facility] Stop: 01/26/18 22:01 Last Admin: 07/29/17 09:43 Dose: 500 mg Clopidogrel Bisulfate (Plavix) 75 mg PO DAILY [facility] Stop: 01/26/18 21:46 Last Admin: 07/29/17 09:44 Dose: 75 mg Docusate Sodium (Colace) 100 mg PO BID PRN PRN Reason: Constipation Stop: 01/26/18 21:34 Gabapentin (Neurontin) 200 mg PO HS [facility] Stop: 01/26/18 22:01 Last Admin: 07/28/17 21:40 Dose: 200 mg Heparin Sodium (Porcine) (Heparin) 2,700 unit 60 unit/kg (2700 unit) IVP Q6HR PRN PRN Reason: SEE COMMENTS Stop: 01/26/18 23:43 Heparin Sodium (Porcine) (Heparin) 1,400 unit 30 unit/kg (1400 unit) IVP Q6H PRN PRN Reason: SEE COMMENTS Stop: 01/26/18 23:43 Last Admin: 07/28/17 14:27 Dose: 1,400 unit Heparin Sodium/Dextrose (Heparin 25,000 Unit/500 Ml D5w) 25,000 unit in 500 mls @ 10.896 mls/hr IVC .Q24H [facility]; 12 UNIT/KG/HR PRN Reason: Protocol Stop: 01/26/18 23:46 Last Titration: 07/29/17 06:38 Dose: 16.09 unit/kg/hr, 14.61 mls/hr Levofloxacin/Dextrose (Levaquin Premix 500mg/100ml) 500 mg in 100 mls @ 100 mls /hr IVPB Q48H [facility] PRN Reason: Protocol Stop: 01/27/18 11:01 Last Admin: 07/28/17 12:40 Dose: 100 mls/hr Mirtazapine (Remeron) 15 mg PO HS [facility] Stop: 01/26/18 22:01 Last Admin: 07/28/17 21:40 Dose: 15 mg Multivitamins/Calcium (Thera M Plus) 1 tab PO DAILY [facility] Stop: 01/26/18 22:01 Last Admin: 07/29/17 09:44 Dose: 1 tab Naloxone HCl (Narcan) 0.4 mg IVP Q2MIN PRN PRN Reason: Opioid Reversal Stop: 01/26/18 23:18 Nitroglycerin (Nitroglycerin) 0.4 mg SL Q5MIN PRN PRN Reason: Chest Pain Stop: 01/26/18 23:07 Ondansetron HCl (Zofran Odt) 4 mg SL Q8HR PRN PRN Reason: Nausea And Vomiting Stop: 01/26/18 21:34 Vitamin B Complex/Vit C/Vit E (Stresstab) 1 each PO DAILY [facility] Stop: 01/26/18 22:01 Last Admin: 07/29/17 09:43 Dose: 1 each Vitamin D (Vitamin D) 1,000 unit PO DAILY [facility] Stop: 01/26/18 22:01 Last Admin: 07/29/17 09:44 Dose: 1,000 unit Vitamin E (Vitamin E) 1,000 unit PO DAILY [facility] Stop: 01/26/18 22:01 Last Admin: 07/29/17 09:43 Dose: 1,000 unit - Imaging and Cardiology Echo: report reviewed - EKG Interpretation EKG results cardiology: other (12 hr tele AVG HR 102, SR with brief episodes of PAF.) Consult Discharge Plan - Plan Referrals: Thuan Levine MD [Primary Care Provider] - 08/04/17 3:30 pm
--- NOTE | 2017-07-29 13:10 | Internal Med Progress Note ---
Date of Encounter: 07/29/17 Time of Encounter: 11:00 - Assessment and plan (1) NSTEMI (non-ST elevated myocardial infarction) Current Visit: Yes Status: Acute Assessment and plan: The patient has been started taken off the heparin drip. Her hemoglobin did drop a little bit. There is no sinus bleeding. Her beta jatin is on hold due to low blood pressure. She is maintained on Plavix and statin. Cardiology following. No plans for left heart catheter anymore. (2) Pneumonia Current Visit: Yes Status: Acute Assessment and plan: The patient's culture have been negative. She is afebrile. She has no white count. She did have infiltrate on her CT scan that was done at outside facility. Continue Levaquin. Urine strep and legionella are negative. She has a nonproductive cough. She is not able to give us a sample for culture. Try to wean down oxygen as tolerated. Qualifiers: Pneumonia type: due to unspecified organism Laterality: bilateral Lung location: unspecified part of lung Qualified Code(s): J18.9 - Pneumonia, unspecified organism (3) Acute CHF (congestive heart failure) Current Visit: Yes Status: Acute Assessment and plan: It has been worked diuresed patient given her low blood pressure. Cardiology is also managing. Hold her Lasix this morning again secondary to low blood pressure. Try to wean her off oxygen as tolerated. We will continue with nebulizer treatment. Echo was done with EF 65% and mild diastolic dysfunction as well as moderate tricuspid regurgitation and mild pulmonary hypertension. Qualifiers: Congestive heart failure type: unspecified congestive heart failure type Qualified Code(s): I50.9 - Heart failure, unspecified (4) Hypotension Current Visit: Yes Status: Resolved Assessment and plan: Hold atenolol as well as Lasix this morning. Qualifiers: Hypotension type: unspecified hypotension type Qualified Code(s): I95.9 - Hypotension, unspecified (5) DVT prophylaxis Current Visit: Yes Status: Acute Assessment and plan: Heparin subcutaneous has been added (6) PAF (paroxysmal atrial fibrillation) Current Visit: Yes Status: Acute Assessment and plan: Her [id number] score would qualify her for anticoagulation however she is being followed by cardiology who elected not start that right now given her drop in hemoglobin and low blood pressure. She is currently only on Plavix. She had issues with aspirin in the past causing a bleed from a gastric ulcer. - Subjective Interval history: She had a couple of runs of A. fib overnight. This has resolved. Cardiology is aware of this. The patient has been doing with low blood pressure. We have not been able to give any Lasix or her beta jatin due to that. Cardiology is aware. Her heparin drip has been stopped as cardiology saw the patient and we have elected to proceed with medical management. She complains of no chest pain whatsoever. She still requiring O2. She is afebrile - Constitutional Vitals: Temp Pulse Resp BP Pulse Ox 97.8 F 98 18 89/59 98 07/29/17 11:17 07/29/17 11:17 07/29/17 11:17 07/29/17 11:17 07/29/17 11:17 General appearance: Present: mild distress, A&O X 3, pleasant, underweight, answers questions appropriately Exam: GEN: NAD CVS: RRR. S1, S2, No m/r/g RESP: Diminished. Bibasilar crackles. ABD: Soft, NT, ND, +BS EXT: Trace edema. 2+ DP, No rashes NEURO: Nonfocal Internal Medicine: Result - Labs CBC & Chem 7: 07/29/17 04:57 07/29/17 04:57 Labs: Short CBC 07/29/17 Range/Units 04:57 WBC 8.7 (4.3-11.1) K/mcL Hgb 9.5 L D (11.5-15.4) g/dL Hct 31.0 L (35.3-44.9) % Plt Count 245 (140-400) K/mcL Neutrophils # 7.4 (1.6-8.9) K/mcL BMP 07/29/17 04:57 Sodium 142 Potassium 3.7 Chloride 102 Carbon Dioxide 33 H BUN 17 Creatinine 0.70 Glucose 92 Calcium 8.1 L - ABG Interpretation ABG results: PT/INR, D-dimer PT 12.7 Seconds (9.4-12.1) H 07/27/17 22:00 - Impressions Impressions Chest X-Ray 07/28/17 18:53 IMPRESSION: Persistent basilar airspace disease and effusion greater on the right presumably representing pneumonia. This could be postobstructive and is superimposed upon significant interstitial fibrosis and emphysema. D/ / Sandro Gordon MD / Sandro Gordon MD Interpreting Provider: Sandro Gordon MD Consult Discharge Plan - Plan Referrals: Thuan Levine MD [Primary Care Provider] - 08/04/17 3:30 pm
--- NOTE | 2017-07-29 17:50 | Electrocardiograph Report ---
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
[2017-07-29] MEDS: *HR* Heparin 5,000 UNIT/ML VIAL SQ SCH (18:03)
[2017-07-29] MEDS: Mirtazapine 15 MG TABLET PO SCH (22:10)
[2017-07-29] MEDS: Gabapentin 100 MG CAPSULE PO SCH (22:10)
[2017-07-30] MEDS: Ipratropium/Albuterol Neb 3 ML IH SCH ×5 (04:01→20:36)
[2017-07-30] MEDS: *HR* Heparin 5,000 UNIT/ML VIAL SQ SCH ×2 (06:18→18:39)
[2017-07-30 06:55] LABS: Hematocrit 33.8 % (35.3-44.9); Hemoglobin 10.3 g/dL (11.5-15.4); Mean Corpuscular HGB Conc 30.5 g/dL (31.6-35.5); Mean Corpuscular Hemoglobin 28.5 pg (28.0-33.3); Mean Corpuscular Volume 93.6 fL (83.0-100.0); Mean Platelet Volume 9.9 fL (9.4-12.4); Platelet Count 239 K/mcL (140-400); Red Blood Count 3.61 M/mcL (3.82-4.97); Red Cell Distribution Width 14.2 % (11.5-14.5)
[2017-07-30 07:07] LABS: BUN/Creatinine Ratio 13 (6-26); Blood Urea Nitrogen 8 mg/dL (7-20); Calcium 8.4 mg/dL (8.6-10.8); Carbon Dioxide 34 mEq/L (19-29); Chloride 101 mEq/L (98-109); Glucose 86 mg/dL (70-99); Magnesium 1.4 mg/dL (1.6-2.6); Osmolality,Calculated 288 (280-300); Phosphorous 3.4 mg/dL (2.3-4.7); Potassium 4.6 mEq/L (3.5-4.5); Sodium 140 mEq/L (136-145); eGFR For African Americans > 60 (> 60); eGFR For Non-African Americans > 60 (> 60)
[2017-07-30 07:49] LABS: Lymphocytes # 0.7 K/mcL (0.6-4.6); Monocytes # 0.5 K/mcL (0.0-1.3); Neutrophils # 4.8 K/mcL (1.6-8.9); Platelet Estimate Normal (Normal); Polychromasia 1+ (Not Present); Reactive Lymphocytes Present (Not Present); Schistocytes 1+ (Not Present); Smudge Cells Present (Not Present); Target Cells 1+ (Not Present)
[2017-07-30] MEDS: Levofloxacin 500 MG/100 ML 500 MG/100 ML BAG IVPB SCH (09:36)
[2017-07-30] MEDS: Vitamin B Complex/Vit C/Vit E 1 EACH TABLET PO SCH (09:38)
[2017-07-30] MEDS: Multivit/Ca/Min/Fe/FA 1 TAB TABLET PO SCH (09:38)
[2017-07-30] MEDS: Cholecalciferol (D-3) 1,000 UNIT TABLET PO SCH (09:38)
[2017-07-30] MEDS ORDERED: Furosemide 20 MG/2 ML VIAL IVP ONE (13:08)
--- NOTE | 2017-07-30 13:14 | Internal Med Progress Note ---
Date of Encounter: 07/30/17 Time of Encounter: 12:35 - Assessment and plan (1) Acute CHF (congestive heart failure) Current Visit: Yes Status: Acute Assessment and plan: Unable to diurese given low BP readings noted to have worsening respiratory status with bibasilar crackles will try a albumin challenge with lasix if BP permits continue nebulizer treatments as needed O2 supplementation as needed Echo was done with EF 65% and mild diastolic dysfunction as well as moderate tricuspid regurgitation and mild pulmonary hypertension. Qualifiers: Congestive heart failure type: unspecified congestive heart failure type Qualified Code(s): I50.9 - Heart failure, unspecified (2) Hypertension Current Visit: Yes Status: Chronic Assessment and plan: Repeat BP is 90/60 unable to administer lasix and BB given low BP readings will given one time dose of albumin, if BP improves, will administer lasix IV continue to closely monitor BP Qualifiers: Hypertension type: unspecified Qualified Code(s): I10 - Essential (primary ) hypertension (3) Hypomagnesemia Current Visit: Yes Status: Acute Assessment and plan: Mg supplemented continue to monitor electrolytes and replace as needed (4) NSTEMI (non-ST elevated myocardial infarction) Current Visit: Yes Status: Acute Assessment and plan: Medical management recommended by cardiology continue plavix, statin, bb(if BP permits) No further cardiac intervention recommended (5) PAF (paroxysmal atrial fibrillation) Current Visit: Yes Status: Acute Assessment and plan: Cardiology on board and consultation appreciated Medical optimization recommended continue Plavix No anticoagulation given anemia Unable to tolerate BB given low BP readings (6) Pneumonia Current Visit: Yes Status: Acute Assessment and plan: The patient's culture have been negative. She is afebrile, no leukocytosis. She did have infiltrate on her CT scan that was done at outside facility. Continue Levaquin. Urine strep and legionella are negative. She has a nonproductive cough. She is not able to give us a sample for culture. Try to wean down oxygen as tolerated. Qualifiers: Pneumonia type: due to unspecified organism Laterality: bilateral Lung location: unspecified part of lung Qualified Code(s): J18.9 - Pneumonia, unspecified organism (7) DVT prophylaxis Current Visit: Yes Status: Acute Assessment and plan: Heparin subcutaneous (8) Lung cancer Current Visit: No Status: Chronic Qualifiers: Laterality: right Lung location: unspecified part of lung Qualified Code( s): C34.91 - Malignant neoplasm of unspecified part of right bronchus or lung - Subjective Interval history: Patient seen and examined at bedside. Resting in chair and noted to be on 7L high flow nasal cannula. Conversating appropriately and denies any discomfort pt has not been able to receive her Atenolol due to her low BP readings. - Constitutional Vitals: Temp Pulse Resp BP Pulse Ox 98.2 F 101 18 114/72 91 07/30/17 06:56 07/30/17 06:56 07/30/17 08:06 07/30/17 06:56 07/30/17 09:15 General appearance: Present: A&O X 3, pleasant, no acute distress, underweight, answers questions appropriately - Head Head exam: Present: atraumatic, normocephalic - Eye Eye exam: Present: conjuntiva pink, sclera anicteric - Respiratory Respiratory exam: Absent: respiratory distress (diffuse rales and coarse breath sounds ) - Cardiovascular Cardiovascular exam: Present: irregular rhythm, +S1, +S2, tachycardia - GI/Abdominal GI/Abdominal exam: Present: normal bowel sounds, soft, no peritoneal signs. Absent: distended, tenderness - Extremities Exam Extremities exam: Present: pedal edema, warm, radial pulses palpable and symmetrical. Absent: calf tenderness Internal Medicine: Result - Labs CBC & Chem 7: 07/30/17 06:48 07/30/17 06:48 Labs: Short CBC 07/30/17 Range/Units 06:48 WBC 6.0 (4.3-11.1) K/mcL Hgb 10.3 L (11.5-15.4) g/dL Hct 33.8 L (35.3-44.9) % Plt Count 239 (140-400) K/mcL Neutrophils # 4.8 (1.6-8.9) K/mcL BMP 07/30/17 06:48 Sodium 140 Potassium 4.6 H Chloride 101 Carbon Dioxide 34 H BUN 8 Creatinine 0.61 Glucose 86 Calcium 8.4 L - ABG Interpretation ABG results: PT/INR, D-dimer PT 12.7 Seconds (9.4-12.1) H 07/27/17 22:00 Consult Discharge Plan - Plan Referrals: Thuan Levine MD [Primary Care Provider] - 08/04/17 3:30 pm
[2017-07-30] MEDS: Budesonide/Formoterol 160/4.5 MDI IH SCH (20:37)
[2017-07-30] MEDS: Gabapentin 100 MG CAPSULE PO SCH (21:00)
[2017-07-30] MEDS: Mirtazapine 15 MG TABLET PO SCH (21:00)
[2017-07-31] MEDS: Ipratropium/Albuterol Neb 3 ML IH SCH ×7 (00:01→23:58)
[2017-07-31 06:06] LABS: BUN/Creatinine Ratio 13 (6-26); Blood Urea Nitrogen 8 mg/dL (7-20); Calcium 8.2 mg/dL (8.6-10.8); Carbon Dioxide 34 mEq/L (19-29); Chloride 101 mEq/L (98-109); Glucose 88 mg/dL (70-99); Magnesium 1.6 mg/dL (1.6-2.6); Osmolality,Calculated 288 (280-300); Phosphorous 3.7 mg/dL (2.3-4.7); Potassium 4.3 mEq/L (3.5-4.5); Sodium 140 mEq/L (136-145); eGFR For African Americans > 60 (> 60); eGFR For Non-African Americans > 60 (> 60)
[2017-07-31 06:12] LABS: Basophils % 0.2 %; Eosinophils # 0.1 K/mcL (0.0-0.6); Eosinophils % 1.5 %; Hematocrit 32.5 % (35.3-44.9); Hemoglobin 9.8 g/dL (11.5-15.4); Immature Granulocytes % 0.6 % (0-4); Lymphocytes # 0.3 K/mcL (0.6-4.6); Lymphocytes % 4.7 %; Mean Corpuscular HGB Conc 30.2 g/dL (31.6-35.5); Mean Corpuscular Hemoglobin 28.4 pg (28.0-33.3); Mean Corpuscular Volume 94.2 fL (83.0-100.0); Mean Platelet Volume 10.2 fL (9.4-12.4); Monocytes # 0.7 K/mcL (0.0-1.3); Monocytes % 13.9 %; Neutrophils # 4.2 K/mcL (1.6-8.9); Platelet Count 215 K/mcL (140-400); Red Blood Count 3.45 M/mcL (3.82-4.97); Red Cell Distribution Width 14.2 % (11.5-14.5); Segmented Neutrophils % 79.1 %
[2017-07-31] MEDS: *HR* Heparin 5,000 UNIT/ML VIAL SQ SCH ×2 (06:55→17:38)
[2017-07-31] MEDS: Vitamin B Complex/Vit C/Vit E 1 EACH TABLET PO SCH (09:38)
[2017-07-31] MEDS: Cholecalciferol (D-3) 1,000 UNIT TABLET PO SCH (09:38)
[2017-07-31] MEDS: Multivit/Ca/Min/Fe/FA 1 TAB TABLET PO SCH (09:38)
[2017-07-31] MEDS: Budesonide/Formoterol 160/4.5 MDI IH SCH ×2 (11:13→20:58)
--- NOTE | 2017-07-31 13:37 | Internal Med Progress Note ---
Date of Encounter: 07/31/17 Time of Encounter: 13:15 - Assessment and plan (1) Acute CHF (congestive heart failure) Current Visit: Yes Status: Acute Assessment and plan: Unable to diurese given low BP readings noted to have worsening respiratory status with bibasilar crackles will try a albumin challenge with lasix if BP permits continue nebulizer treatments as needed O2 supplementation as needed Pt requiring bipap support at this time Echo was done with EF 65% and mild diastolic dysfunction as well as moderate tricuspid regurgitation and mild pulmonary hypertension. Qualifiers: Congestive heart failure type: unspecified congestive heart failure type Qualified Code(s): I50.9 - Heart failure, unspecified (2) Hypertension Current Visit: Yes Status: Chronic Assessment and plan: unable to administer lasix and BB given low BP readings will given one time dose of albumin, if BP improves, will administer lasix IV continue to closely monitor BP Qualifiers: Hypertension type: unspecified Qualified Code(s): I10 - Essential (primary ) hypertension (3) Hypomagnesemia Current Visit: Yes Status: Resolved (4) NSTEMI (non-ST elevated myocardial infarction) Current Visit: Yes Status: Acute Assessment and plan: Medical management recommended by cardiology continue plavix, statin, bb(if BP permits) No further cardiac intervention recommended (5) PAF (paroxysmal atrial fibrillation) Current Visit: Yes Status: Acute Assessment and plan: Cardiology on board and consultation appreciated Medical optimization recommended continue Plavix No anticoagulation given anemia Unable to tolerate BB given low BP readings (6) Pneumonia Current Visit: Yes Status: Acute Assessment and plan: The patient's culture have been negative. She is afebrile, no leukocytosis. She did have infiltrate on her CT scan that was done at outside facility. Continue Levaquin (Day 5/10) Urine strep and legionella are negative. She has a nonproductive cough. Try to wean down oxygen as tolerated. Qualifiers: Pneumonia type: due to unspecified organism Laterality: bilateral Lung location: unspecified part of lung Qualified Code(s): J18.9 - Pneumonia, unspecified organism (7) DVT prophylaxis Current Visit: Yes Status: Acute Assessment and plan: Heparin subcutaneous (8) Lung cancer Current Visit: No Status: Chronic Qualifiers: Laterality: right Lung location: unspecified part of lung Qualified Code( s): C34.91 - Malignant neoplasm of unspecified part of right bronchus or lung - Subjective Interval history: Patient seen and examined with family present at bedside. Pt remains hypotensive unable to tolerate diuretic therapy, BP improved with albumin yesterday, will administer one time dose of albumin 12.5% and if BP permits will give Lasix 20mg IV. Currently saturating well on bipap therapy. Noted to desaturate on high flow nasal cannula. Remains AAO x 3. Afib with RVR, unable to tolerate Atenolol due to hypotension. - Constitutional Vitals: Temp Pulse Resp BP Pulse Ox 97.5 F L 115 16 83/55 98 07/31/17 10:55 07/31/17 10:55 07/31/17 10:55 07/31/17 10:55 07/31/17 10:55 General appearance: Present: mild distress (respiratory distress on nasal cannula, improved with bipap), A&O X 3, pleasant, underweight, answers questions appropriately - Head Head exam: Present: atraumatic, normocephalic - Eye Eye exam: Present: conjuntiva pink, sclera anicteric - Respiratory Respiratory exam: Absent: accessory muscle use, wheezes (diffuse rales) - Cardiovascular Cardiovascular exam: Present: irregular rhythm, +S1, +S2, tachycardia - GI/Abdominal GI/Abdominal exam: Present: normal bowel sounds, soft, no peritoneal signs. Absent: distended, tenderness - Extremities Exam Extremities exam: Present: pedal edema, warm, radial pulses palpable and symmetrical. Absent: calf tenderness - Neurological Exam Neurological exam: Present: alert, oriented X3 - Psychiatric Psychiatric exam: Present: normal affect, normal mood Internal Medicine: Result - Labs CBC & Chem 7: 07/31/17 05:28 07/31/17 05:28 Labs: Short CBC 07/31/17 Range/Units 05:28 WBC 5.3 (4.3-11.1) K/mcL Hgb 9.8 L (11.5-15.4) g/dL Hct 32.5 L (35.3-44.9) % Plt Count 215 (140-400) K/mcL Neutrophils # 4.2 (1.6-8.9) K/mcL BMP 07/31/17 05:28 Sodium 140 Potassium 4.3 Chloride 101 Carbon Dioxide 34 H BUN 8 Creatinine 0.60 Glucose 88 Calcium 8.2 L - ABG Interpretation ABG results: PT/INR, D-dimer PT 12.7 Seconds (9.4-12.1) H 07/27/17 22:00 Consult Discharge Plan - Plan Referrals: Thuan Levine MD [Primary Care Provider] - 08/04/17 3:30 pm
[2017-07-31] MEDS: *HR* Digoxin 0.125 MG TABLET PO SCH (14:27)
[2017-07-31] MEDS: Furosemide 20 MG/2 ML VIAL IVP SCH (16:10)
[2017-07-31] MEDS: Mirtazapine 15 MG TABLET PO SCH (22:21)
[2017-07-31] MEDS: Gabapentin 100 MG CAPSULE PO SCH (22:21)
[2017-08-01] MEDS: Ipratropium/Albuterol Neb 3 ML IH SCH ×6 (04:03→23:10)
[2017-08-01] MEDS: *HR* Heparin 5,000 UNIT/ML VIAL SQ SCH ×2 (06:56→18:00)
[2017-08-01 06:57] LABS: Basophils % 0.2 %; Eosinophils # 0.1 K/mcL (0.0-0.6); Eosinophils % 1.2 %; Hematocrit 30.1 % (35.3-44.9); Hemoglobin 9.5 g/dL (11.5-15.4); Immature Granulocytes % 0.3 % (0-4); Lymphocytes # 0.2 K/mcL (0.6-4.6); Lymphocytes % 3.9 %; Mean Corpuscular HGB Conc 31.6 g/dL (31.6-35.5); Mean Corpuscular Hemoglobin 29.4 pg (28.0-33.3); Mean Corpuscular Volume 93.2 fL (83.0-100.0); Mean Platelet Volume 10.8 fL (9.4-12.4); Monocytes # 0.6 K/mcL (0.0-1.3); Monocytes % 9.4 %; Platelet Count 220 K/mcL (140-400); Red Blood Count 3.23 M/mcL (3.82-4.97); Red Cell Distribution Width 14.5 % (11.5-14.5)
[2017-08-01 07:23] LABS: BUN/Creatinine Ratio 15 (6-26); Blood Urea Nitrogen 8 mg/dL (7-20); Calcium 8.2 mg/dL (8.6-10.8); Carbon Dioxide 33 mEq/L (19-29); Chloride 99 mEq/L (98-109); Glucose 82 mg/dL (70-99); Magnesium 1.4 mg/dL (1.6-2.6); Osmolality,Calculated 287 (280-300); Phosphorous 3.3 mg/dL (2.3-4.7); Potassium 4.1 mEq/L (3.5-4.5); Sodium 140 mEq/L (136-145); eGFR For African Americans > 60 (> 60); eGFR For Non-African Americans > 60 (> 60)
[2017-08-01] MEDS: Budesonide/Formoterol 160/4.5 MDI IH SCH ×2 (08:08→19:30)
[2017-08-01] MEDS: *HR* Digoxin 0.125 MG TABLET PO SCH (09:35)
[2017-08-01] MEDS ORDERED: *HR* Digoxin 0.5 MG/2 ML AMPUL IVP ONE ×2 (09:42→13:30)
[2017-08-01] MEDS: levoFLOXacin 500 MG TABLET PO SCH (09:53)
[2017-08-01] MEDS: Multivit/Ca/Min/Fe/FA 1 TAB TABLET PO SCH (09:54)
[2017-08-01] MEDS: Cholecalciferol (D-3) 1,000 UNIT TABLET PO SCH (09:54)
[2017-08-01] MEDS: Vitamin B Complex/Vit C/Vit E 1 EACH TABLET PO SCH (09:54)
[2017-08-01] MEDS: Furosemide 20 MG/2 ML VIAL IVP SCH (11:02)
--- NOTE | 2017-08-01 15:08 | Internal Med Progress Note ---
Date of Encounter: 08/01/17 Time of Encounter: 10:10 - Assessment and plan (1) Acute respiratory failure with hypoxia Current Visit: Yes Status: Acute Assessment and plan: Due to pneumonia and CHF. Improving. Currently patient is on 4 L nasal cannula. (2) Acute CHF (congestive heart failure) Current Visit: Yes Status: Acute Assessment and plan: Improving. 2-D echocardiogram shows mild left ventricle and diastolic dysfunction. Renal function is stable. Patient has had -6 L fluid balance. We will transition to oral Lasix. Qualifiers: Congestive heart failure type: diastolic Qualified Code(s): I50.31 - Acute diastolic (congestive) heart failure (3) Pneumonia Current Visit: Yes Status: Acute Assessment and plan: Continue Levaquin Qualifiers: Pneumonia type: due to unspecified organism Laterality: bilateral Lung location: unspecified part of lung Qualified Code(s): J18.9 - Pneumonia, unspecified organism (4) Hypotension Current Visit: Yes Status: Acute Assessment and plan: Patient having chronically low blood pressure. Asymptomatic. We will monitor closely. Qualifiers: Hypotension type: hypotension due to drug Qualified Code(s): I95.2 - Hypotension due to drugs (5) NSTEMI (non-ST elevated myocardial infarction) Current Visit: Yes Status: Acute Assessment and plan: Medical management. Continue Plavix, statin and beta jatin (6) Hypomagnesemia Current Visit: Yes Status: Acute Assessment and plan: Magnesium 1.4. We will replete (7) PAF (paroxysmal atrial fibrillation) Current Visit: Yes Status: Acute Assessment and plan: Patient in rapid A. fib this morning. Was started on digoxin yesterday. We will give 1 dose IV today. Monitor with telemetry. Continue atenolol as long as blood pressure is greater than 90 systolic. (8) Lung cancer Current Visit: Yes Status: Chronic Assessment and plan: Patient wishes to be on comfort care alone. We will consult palliative care for recommendations as patient is willing to consider hospice. Qualifiers: Laterality: right Lung location: unspecified part of lung Qualified Code( s): C34.91 - Malignant neoplasm of unspecified part of right bronchus or lung - Subjective Interval history: Patient is feeling better today. No shortness of breath. No chest pain. Denies any palpitations or dizziness. - Constitutional Vitals: Temp Pulse Resp BP Pulse Ox 98 F 118 16 80/57 92 12/15/17 11:05 08/01/17 11:05 08/01/17 11:08 08/01/17 11:05 08/01/17 11:08 General appearance: Present: A&O X 3, pleasant, no acute distress, underweight, answers questions appropriately - Neck Neck exam general surgery: Present: supple, trachea midline. Absent: lymphadenopathy - Respiratory Respiratory exam: Present: prolonged expiratory phase. Absent: accessory muscle use, rales, rhonchi, wheezes - Cardiovascular Cardiovascular exam: Present: RRR, +S1, +S2. Absent: diastolic murmur, gallop, rubs, systolic murmur - GI/Abdominal GI/Abdominal exam: Present: normal bowel sounds, soft, no peritoneal signs. Absent: distended, tenderness - Extremities Exam Extremities exam: Present: pedal edema, warm, radial pulses palpable and symmetrical. Absent: calf tenderness, cyanotic - Neurological Exam Neurological exam: Present: CN II-XII intact, oriented X3, no focal deficits. Absent: facial droop, speech deficit Internal Medicine: Result - Labs CBC & Chem 7: 08/01/17 02:37 08/01/17 06:55 Labs: Short CBC 08/01/17 Range/Units 02:37 WBC 5.9 (4.3-11.1) K/mcL Hgb 9.5 L (11.5-15.4) g/dL Hct 30.1 L (35.3-44.9) % Plt Count 220 (140-400) K/mcL Neutrophils # 5.0 (1.6-8.9) K/mcL BMP 08/01/17 06:55 Sodium 140 Potassium 4.1 Chloride 99 Carbon Dioxide 33 H BUN 8 Creatinine 0.52 L Glucose 82 Calcium 8.2 L - ABG Interpretation ABG results: PT/INR, D-dimer PT 12.7 Seconds (9.4-12.1) H 07/27/17 22:00 Consult Discharge Plan - Plan Referrals: Thuan Levine MD [Primary Care Provider] - 08/04/17 3:30 pm
--- NOTE | 2017-08-01 15:18 | Palliative - Consult Note ---
Date of Encounter: 08/01/17 Time of Encounter: 15:15 - Assessment and Plan (1) Dyspnea Current Visit: Yes Status: Acute Assessment and plan: Continues medical management with Symbicort/nebs/supportive oxygen/Lasix , bipap PRN. Monitor Qualifiers: Dyspnea type: unspecified Qualified Code(s): R06.00 - Dyspnea, unspecified (2) Counseling regarding advanced care planning and goals of care Current Visit: Yes Status: Acute Assessment and plan: Patient is alert and oriented and participated in goals of care discussions. She is aware of her clinical status and frailty. She has already established her code status as DNRCC. We discussed hospice at length - she is not ready to transition to hospice care at this time, and states she is a "fighter" and wants to continue current treatment and see if she improves. We discussed that she doesn't have to "give up her fight" with hospice, but it would entail transition home or to ECF and managing her care at home primarily with comfort medications. She verbalized understanding, and still desires to go to rehab at this time. States she wants to see if she improves any over the next few days. Her daughter from [place] is flying in the evening, so hopefully will touch base with her, however, pt is perfectly able to make her own medical decisions at this time. Will f/U in am. (3) Acute respiratory failure with hypoxia Current Visit: Yes Status: Acute (4) Acute CHF (congestive heart failure) Current Visit: Yes Status: Acute Qualifiers: Congestive heart failure type: diastolic Qualified Code(s): I50.31 - Acute diastolic (congestive) heart failure (5) COPD exacerbation Current Visit: Yes Status: Acute (6) Lung cancer Current Visit: Yes Status: Chronic Qualifiers: Laterality: right Lung location: unspecified part of lung Qualified Code( s): C34.91 - Malignant neoplasm of unspecified part of right bronchus or lung (7) NSTEMI (non-ST elevated myocardial infarction) Current Visit: Yes Status: Acute Assessment and plan: Cardiology following. Palliative-CN HPI - Data of Consult Consult date: 08/01/17 Requesting Physician: Negrito Anne MD Primary Care Provider: Thuan Levine MD - Consult Narrative History of present illness: Ms. Darrel aMier is a 82 year old female with a history of adenocarcinoma of the lung, who presented with increasing shortness of breath. States she went into the bathroom at home, and was so short of breath and felt so bad, she was unable to stand up. She was brought to ER, and found hypoxic, tachycardiac, and tachypneic. She currently utilizes oxygen at home but only at night. She was also found to have NSTEMI and has had cardiology involved in her care during this admission. She does not desire invasive testing - being managed medically. She has been hypotensive, so diuresing has been a problem. She is on IV antibiotics for pneumonia and treated for exacerbation of COPD as well. Upon my visit, she is tachypneic with conversation. is as bedside, he is quite hard of hearing. She denies any pain/discomfort, and only complaint is her shortness of breath. She is having difficulty taking po r/t energy and dyspnea, does have ensure supplements at bedside. CC: Negrito Anne MD Past Med Surg Social Fam HX - Past Medical History Medical history: arthritis, asthma, COPD, hypertension, kidney stones Psychiatric history: no psych history - Past Surgical History Surgical History: cataract, other - Social History Smoking Status: Never smoker Smokeless Tobacco Status: No Alcohol use: none Drug use: none - Family History Father Cause of : lung cancer Hx Family Endocrine Disorder: Yes (thyroid disease) Mother Cause of : lung cancer Hx Family Cardiac Disorders: Yes (CO) Brother Adopted: No Cause of : lung cancer Medications and Allergies Atenolol [Tenormin] 25 mg PO QAM 10/22/16 [History] Gabapentin [Neurontin] 200 mg PO HS 01/06/17 [History] Albuterol Sulfate [Ventolin Hfa] 2 puff IH Q4-6H PRN 03/12/17 [History] Budesonide/Formoterol 160/4.5 [Symbicort 160/4.5] 2 puff IH BID 03/12/17 [ History] Oxygen 1 each .ROUTE HS PRN 03/12/17 [History] Mirtazapine [Remeron] 15 mg PO HS 06/24/17 [History] Atenolol [Tenormin] 12.5 mg PO HS 07/08/17 [History] Calcium Carbonate [Calcium] 600 mg PO BID 07/08/17 [History] Cholecalciferol (D-3) [Vitamin D] 1,000 unit PO DAILY 07/08/17 [History] Multivitamin [One Daily Multivitamin] 1 tab PO DAILY 07/08/17 [History] Vitamin B Complex [B Complex] 1 tab PO DAILY 07/08/17 [History] Vitamin E Mixed [Vitamin E] 1,000 unit PO DAILY 07/08/17 [History] 3 Allergy/AdvReac Type Severity Reaction Status Date / Time aspirin Allergy Unknown BLEEDING Verified 07/08/17 11:49 ULCER lidocaine [From Lidoderm] AdvReac Redness of Verified 07/08/17 11:49 Skin All systems: reviewed and no additional remarkable complaints except as stated ( generalized weakness, shortness of breath even at rest, poor activity tolerance. ) Palliative Care-Exam - Constitutional Vitals: Temp Pulse Resp BP Pulse Ox 98 F 118 16 80/57 92 08/01/17 11:05 08/01/17 11:05 08/01/17 11:08 08/01/17 11:05 08/01/17 11:08 General appearance: Present: mild distress - Head Head Exam: Present: normal inspection, normocephalic - Eye Eye exam: Present: normal appearance, PERRL - Respiratory Respiratory exam: Present: decreased breath sounds, CTAB Additional comments: crackles noted bilaterally lower lobes - Cardiovascular Cardiovascular exam: Present: irregular rhythm - GI/Abdominal Exam GI/Abdominal exam: Present: normal bowel sounds, soft - Extremities Exam Extremities exam: Present: normal capillary refill, normal inspection - Neurological Exam Neurological exam: Present: alert, oriented X3, strengths equal and symetr throughout - Psychiatric Psychiatric exam: Present: normal affect, normal mood - Skin Skin exam: Present: dry, pallor, warm Internal Medicine - CN: Reslt - Labs CBC & Chem 7: 08/01/17 02:37 08/01/17 06:55 Labs: Short CBC 08/01/17 Range/Units 02:37 WBC 5.9 (4.3-11.1) K/mcL Hgb 9.5 L (11.5-15.4) g/dL Hct 30.1 L (35.3-44.9) % Plt Count 220 (140-400) K/mcL Neutrophils # 5.0 (1.6-8.9) K/mcL BMP 08/01/17 06:55 Sodium 140 Potassium 4.1 Chloride 99 Carbon Dioxide 33 H BUN 8 Creatinine 0.52 L Glucose 82 Calcium 8.2 L - ABG Interpretation ABG results: PT/INR, D-dimer PT 12.7 Seconds (9.4-12.1) H 07/27/17 22:00 Consult Discharge Plan - Plan Referrals: Thuan Levine MD [Primary Care Provider] - 08/04/17 3:30 pm Palliative Quality Palliative Quality: Screen for Code Status: Yes, Screen for Goals of Care: Yes, Screen for Pain: Yes, If Pain Regimen Started, Initiate Bowel Regimen: NA, Screen for Nausea/Vomitting: Yes Code Status: 07/27/17 21:33 Resuscitation Status: Active [RES] Routine Comment: Resuscitation Status: DNR-Comfort Care
[2017-08-01] MEDS: *HR* Digoxin 0.5 MG/2 ML AMPUL IVP SCH (18:00)
[2017-08-01] MEDS: Mirtazapine 15 MG TABLET PO SCH (22:05)
[2017-08-01] MEDS: Gabapentin 100 MG CAPSULE PO SCH (22:07)
[2017-08-02] MEDS: *HR* Digoxin 0.5 MG/2 ML AMPUL IVP SCH (01:20)
[2017-08-02] MEDS: Ipratropium/Albuterol Neb 3 ML IH SCH ×5 (03:36→19:42)
[2017-08-02] MEDS: *HR* Heparin 5,000 UNIT/ML VIAL SQ SCH ×2 (06:05→17:10)
[2017-08-02] MEDS: Budesonide/Formoterol 160/4.5 MDI IH SCH ×2 (07:42→19:42)
[2017-08-02] MEDS: Vitamin B Complex/Vit C/Vit E 1 EACH TABLET PO SCH (09:57)
[2017-08-02] MEDS: Cholecalciferol (D-3) 1,000 UNIT TABLET PO SCH (09:57)
[2017-08-02] MEDS: *HR* Digoxin 0.125 MG TABLET PO SCH (09:57)
[2017-08-02] MEDS: Furosemide 20 MG TABLET PO SCH (09:57)
[2017-08-02] MEDS: Multivit/Ca/Min/Fe/FA 1 TAB TABLET PO SCH (09:58)
--- NOTE | 2017-08-02 14:33 | Event Note ---
Date of Encounter: 08/02/17 Time of Encounter: 13:00 Saw pt briefly, she was asleep and irritated when I awoke her. Followed up with yesterday's discussion regarding hospice. She is eligible for hospice care , however, continues to state she wants to go to rehab and see if she can improve and gain any strength. D/W Dr. Anne. Will follow clinical course at a distance and assist as needed.
--- NOTE | 2017-08-02 17:28 | Internal Med Progress Note ---
Date of Encounter: 08/02/17 Time of Encounter: 10:15 - Assessment and plan (1) Acute respiratory failure with hypoxia Current Visit: Yes Status: Acute Assessment and plan: Patient remains on 3 L O2 supplementation via nasal cannula. We will continue. Patient will most likely need home oxygen. Continue to treat her underlying conditions. (2) Acute CHF (congestive heart failure) Current Visit: Yes Status: Acute Assessment and plan: Continue Lasix. Clinically patient is getting better overall. Qualifiers: Congestive heart failure type: diastolic Qualified Code(s): I50.31 - Acute diastolic (congestive) heart failure (3) Pneumonia Current Visit: Yes Status: Acute Assessment and plan: On levofloxacin. Complete 10 day course. Qualifiers: Pneumonia type: due to unspecified organism Laterality: bilateral Lung location: unspecified part of lung Qualified Code(s): J18.9 - Pneumonia, unspecified organism (4) Hypotension Current Visit: Yes Status: Acute Assessment and plan: Improving. Continue to monitor blood pressure closely Qualifiers: Hypotension type: hypotension due to drug Qualified Code(s): I95.2 - Hypotension due to drugs (5) NSTEMI (non-ST elevated myocardial infarction) Current Visit: Yes Status: Acute Assessment and plan: Conservative medical management. Palliative care consult appreciated. At this time patient does not wish for hospice and wishes to continue current treatment plan and pursue rehabilitation. (6) Hypomagnesemia Current Visit: Yes Status: Acute Assessment and plan: Repleted (7) PAF (paroxysmal atrial fibrillation) Current Visit: Yes Status: Acute Assessment and plan: Now in sinus rhythm but tachycardic. Will increased atenolol dosage to 25 mg by mouth daily (8) Lung cancer Current Visit: Yes Status: Chronic Assessment and plan: Follow-up outpatient with oncology for further management. Qualifiers: Laterality: right Lung location: unspecified part of lung Qualified Code( s): C34.91 - Malignant neoplasm of unspecified part of right bronchus or lung - Subjective Interval history: No new complaints today. Patient wishes to go to rehabilitation and then of this hospital stay. Denies any chest pain or shortness of breath at this time. No nausea or vomiting. - Constitutional Vitals: Temp Pulse Resp BP Pulse Ox 97.9 F 113 20 107/72 88 08/02/17 16:00 08/02/17 16:00 08/02/17 16:00 08/02/17 16:00 08/02/17 16:00 General appearance: Present: A&O X 3, pleasant, no acute distress, underweight, answers questions appropriately - Respiratory Respiratory exam: Present: decreased breath sounds (At both bases). Absent: accessory muscle use, rales, rhonchi, wheezes - Cardiovascular Cardiovascular exam: Present: RRR, +S1, +S2, tachycardia. Absent: diastolic murmur, gallop, rubs, systolic murmur - GI/Abdominal GI/Abdominal exam: Present: normal bowel sounds, soft, no peritoneal signs. Absent: distended, tenderness - Extremities Exam Extremities exam: Present: warm, radial pulses palpable and symmetrical. Absent : calf tenderness, cyanotic, pedal edema - Neurological Exam Neurological exam: Present: CN II-XII intact, oriented X3, no focal deficits. Absent: facial droop, speech deficit - Skin Skin exam: Present: dry, intact Internal Medicine: Result - Labs CBC & Chem 7: 08/01/17 02:37 08/01/17 06:55 - ABG Interpretation ABG results: PT/INR, D-dimer PT 12.7 Seconds (9.4-12.1) H 07/27/17 22:00 Consult Discharge Plan - Plan Referrals: Thuan Levine MD [Primary Care Provider] - 08/04/17 3:30 pm
[2017-08-02] MEDS: Gabapentin 100 MG CAPSULE PO SCH (21:09)
[2017-08-02] MEDS: Mirtazapine 15 MG TABLET PO SCH (21:09)
[2017-08-03] MEDS: Ipratropium/Albuterol Neb 3 ML IH SCH ×7 (00:11→23:09)
[2017-08-03] MEDS: *HR* Heparin 5,000 UNIT/ML VIAL SQ SCH ×2 (05:57→18:03)
[2017-08-03] MEDS: Budesonide/Formoterol 160/4.5 MDI IH SCH ×2 (07:40→20:48)
[2017-08-03] MEDS: Multivit/Ca/Min/Fe/FA 1 TAB TABLET PO SCH (09:54)
[2017-08-03] MEDS: *HR* Digoxin 0.125 MG TABLET PO SCH (09:54)
[2017-08-03] MEDS: Vitamin B Complex/Vit C/Vit E 1 EACH TABLET PO SCH (09:55)
[2017-08-03] MEDS: Cholecalciferol (D-3) 1,000 UNIT TABLET PO SCH (09:55)
[2017-08-03] MEDS: levoFLOXacin 500 MG TABLET PO SCH (09:55)
[2017-08-03] MEDS: Furosemide 20 MG TABLET PO SCH (09:56)
--- NOTE | 2017-08-03 12:22 | Internal Med Progress Note ---
Date of Encounter: 08/03/17 Time of Encounter: 09:35 - Assessment and plan (1) Acute respiratory failure with hypoxia Current Visit: Yes Status: Acute Assessment and plan: Due to underlying CHF and pneumonia. On 3 L nasal cannula. Continue O2 supplementation. Will evaluate for home oxygen prior to discharge. (2) Acute CHF (congestive heart failure) Current Visit: Yes Status: Acute Assessment and plan: Improving. Patient's Lasix being held due to low blood pressure. Qualifiers: Congestive heart failure type: diastolic Qualified Code(s): I50.31 - Acute diastolic (congestive) heart failure (3) Pneumonia Current Visit: Yes Status: Acute Assessment and plan: On Levaquin. On day 8 out of 10 Qualifiers: Pneumonia type: due to unspecified organism Laterality: bilateral Lung location: unspecified part of lung Qualified Code(s): J18.9 - Pneumonia, unspecified organism (4) Hypotension Current Visit: Yes Status: Acute Assessment and plan: Patient remains hypotensive. Hold atenolol and lasix for systolic blood pressure less than 90 Qualifiers: Hypotension type: hypotension due to drug Qualified Code(s): I95.2 - Hypotension due to drugs (5) NSTEMI (non-ST elevated myocardial infarction) Current Visit: Yes Status: Acute Assessment and plan: Conservative management per patient request. She is DNR comfort care at this time. Continue atenolol, Lipitor, Plavix. (6) Hypomagnesemia Current Visit: Yes Status: Acute (7) PAF (paroxysmal atrial fibrillation) Current Visit: Yes Status: Acute Assessment and plan: Remains in a RVR despite digoxin and patient not tolerating increased dose of atenolol. Discussed with cardiology. Recommend starting patient on amiodarone as she has not responded to digoxin. (8) Lung cancer Current Visit: Yes Status: Chronic Assessment and plan: On comfort care. Patient is not considering hospice at this time. Will follow up outpatient with oncology Qualifiers: Laterality: right Lung location: unspecified part of lung Qualified Code( s): C34.91 - Malignant neoplasm of unspecified part of right bronchus or lung - Subjective Interval history: Patient continues to feel better. Denies any chest pain. No shortness of breath at this time. No other new complaints at this time. - Constitutional Vitals: Temp Pulse Resp BP Pulse Ox 97.8 F 118 36 86/61 96 12/17/17 11:00 08/03/17 11:00 08/03/17 11:06 08/03/17 11:00 08/03/17 11:06 General appearance: Present: A&O X 3, pleasant, no acute distress, underweight, answers questions appropriately - Neck Neck exam general surgery: Present: supple, trachea midline. Absent: lymphadenopathy - Respiratory Respiratory exam: Present: CTAB. Absent: accessory muscle use, rales, rhonchi, wheezes - Cardiovascular Cardiovascular exam: Present: irregular rhythm, +S1, +S2, tachycardia. Absent: diastolic murmur, gallop, rubs, systolic murmur - GI/Abdominal GI/Abdominal exam: Present: normal bowel sounds, soft, no peritoneal signs. Absent: distended, tenderness - Extremities Exam Extremities exam: Present: warm, radial pulses palpable and symmetrical. Absent : calf tenderness, cyanotic, pedal edema - Neurological Exam Neurological exam: Present: alert, oriented X3, no focal deficits. Absent: facial droop, speech deficit Internal Medicine: Result - Labs CBC & Chem 7: 08/01/17 02:37 08/01/17 06:55 - ABG Interpretation ABG results: PT/INR, D-dimer PT 12.7 Seconds (9.4-12.1) H 07/27/17 22:00 Consult Discharge Plan - Plan Referrals: Thuan Levine MD [Primary Care Provider] - 08/04/17 3:30 pm
[2017-08-03] MEDS ORDERED: Amiodarone Premix 360 MG/200 ML BAG IVC ONE ×2 (12:38→18:50)
[2017-08-03] MEDS ORDERED: Amiodarone Premix 360 MG/200 ML BAG IVC SCH ×2 (12:45→18:50)
[2017-08-03] MEDS: Mirtazapine 15 MG TABLET PO SCH (20:00)
[2017-08-03] MEDS: Gabapentin 100 MG CAPSULE PO SCH (20:00)
[2017-08-04] MEDS ORDERED: 0.9 % Sodium Chloride 500 ML IV SCH (00:15)
[2017-08-04] MEDS ORDERED: 0.9 % Sodium Chloride 250 ML IV ONE (00:30)
[2017-08-04] MEDS: Ipratropium/Albuterol Neb 3 ML IH SCH ×6 (04:42→23:07)
[2017-08-04] MEDS ORDERED: 0.9 % Sodium Chloride 500 ML IVC ONE (05:46)
[2017-08-04] MEDS ORDERED: 0.9 % Sodium Chloride 1,000 ML ONE (05:46)
[2017-08-04] MEDS: Budesonide/Formoterol 160/4.5 MDI IH SCH ×2 (07:48→20:42)
[2017-08-04] MEDS: *HR* Heparin 5,000 UNIT/ML VIAL SQ SCH ×2 (08:24→18:22)
[2017-08-04] MEDS: Furosemide 20 MG TABLET PO SCH (08:39)
[2017-08-04] MEDS: Vitamin B Complex/Vit C/Vit E 1 EACH TABLET PO SCH (08:49)
[2017-08-04] MEDS: Multivit/Ca/Min/Fe/FA 1 TAB TABLET PO SCH (08:49)
[2017-08-04] MEDS: *HR* Digoxin 0.125 MG TABLET PO SCH (08:49)
[2017-08-04] MEDS: Cholecalciferol (D-3) 1,000 UNIT TABLET PO SCH (08:49)
--- NOTE | 2017-08-04 10:40 | Cardiology Progress Note ---
Date of Encounter: 08/04/17 Time of Encounter: 09:00 Assessment and Plan (1) PAF (paroxysmal atrial fibrillation) Current Visit: Yes Status: Acute Per Cardiology: Seen previously by Cardiology for 2 brief runs of PAF noted on tele. No hx of PAF, in setting of PNA and NSTEMI. Had recurrent afib RVR with hypotension. On BB and Digoxin. Per Dr. Pa yesterday was started on IV amiodarone gtt. Now SR-ST. Avg Hr past 12 hrs [address] Clay, will complete amio infusion and start amiodarone 200mg PO daily. Re-consult PRN. No further recs. Discussed with Dr. Pa, previously determined to be poor candidate for long- term AC. Patient aware of increased stroke risk. (2) Lung cancer Current Visit: Yes Status: Chronic Per Cardiology: Palliative care following. DNR comfort care. Qualifiers: Laterality: right Lung location: unspecified part of lung Qualified Code( s): C34.91 - Malignant neoplasm of unspecified part of right bronchus or lung Discussion w patient/family: The assessment and plan as outlined above was discussed with the patient and/or family members who expressed understanding and agreement. All questions were answered. Thank you for involving us in the care of your patient. Please call with any questions. Subjective Principal diagnosis: NSTEMI Interval history: Patient denies any chest pain or palpitations. Reports overall her shortness of breath has improved. Objective Vital Signs, Last 4 Hours Temp Pulse Resp BP Pulse Ox 08/04/17 07:48 18 100 08/04/17 07:25 97.4 F L 91 18 95/64 100 General: Conversant Cardiac: Reg Rate and Rhythm, Normal S1 and S2, No Murmur Lungs: Other (slighly labored at rest, decreased to bases) Neuro: Alert and responsive, No focal deficits noted Extremities: No Edema Results 08/01/17 02:37 08/01/17 06:55 Active Medications Acetaminophen (Tylenol) 650 mg PO Q6HR PRN PRN Reason: Mild Pain (1-3) Stop: 01/26/18 21:34 Albuterol/Ipratropium (Duoneb) 3 ml IH [id number] CHAO Stop: 01/26/18 21:01 Last Admin: 08/04/17 07:48 Dose: 3 ml Amiodarone HCl (Cordarone) 200 mg PO DAILY [facility] Stop: 02/03/18 10:46 Atenolol (Tenormin) 25 mg PO DAILY [facility] Stop: 02/02/18 09:01 Last Admin: 08/04/17 08:39 Dose: Not Given Atorvastatin Calcium (Lipitor) 40 mg PO HS [facility] Stop: 01/27/18 21:01 Last Admin: 08/03/17 20:00 Dose: 40 mg Budesonide/Formoterol Fumarate (Symbicort) 2 puff IH BIDR CHAO PRN Reason: Protocol Stop: 01/29/18 22:01 Last Admin: 08/04/17 07:48 Dose: 2 puff Calcium Carbonate (Tums) 500 mg PO BID [facility] Stop: 01/26/18 22:01 Last Admin: 08/04/17 08:49 Dose: 500 mg Clopidogrel Bisulfate (Plavix) 75 mg PO DAILY [facility] Stop: 01/26/18 21:46 Last Admin: 08/04/17 08:49 Dose: 75 mg Digoxin (Lanoxin) 0.0625 mg PO DAILY [facility] Stop: 02/01/18 09:01 Last Admin: 08/04/17 08:49 Dose: 0.0625 mg Docusate Sodium (Colace) 100 mg PO BID PRN PRN Reason: Constipation Stop: 01/26/18 21:34 Furosemide (Lasix) 20 mg PO DAILY [facility] Stop: 02/01/18 09:01 Last Admin: 08/04/17 08:39 Dose: Not Given Gabapentin (Neurontin) 200 mg PO HS [facility] Stop: 01/26/18 22:01 Last Admin: 08/03/17 20:00 Dose: 200 mg Heparin Sodium (Porcine) (Heparin) 5,000 unit SQ Q12HCO [facility] Stop: 01/28/18 18:01 Last Admin: 08/04/17 08:24 Dose: 5,000 unit Amiodarone HCl/Dextrose (Amiodarone Drip Premix 360mg/200ml) 360 mg in 200 mls @ 16.667 mls/hr IVC CONT CHAO PRN Reason: 0.5 MG/MIN Stop: 02/02/18 18:51 Last Admin: 08/03/17 20:00 Dose: 0.5 mg/min, 16.667 mls/hr Levofloxacin (Levaquin) 500 mg PO Q48H [facility] Stop: 08/05/17 23:59 Last Admin: 08/03/17 09:55 Dose: 500 mg Mirtazapine (Remeron) 15 mg PO HS [facility] Stop: 01/26/18 22:01 Last Admin: 08/03/17 20:00 Dose: 15 mg Multivitamins/Calcium (Thera M Plus) 1 tab PO DAILY [facility] Stop: 01/26/18 22:01 Last Admin: 08/04/17 08:49 Dose: 1 tab Naloxone HCl (Narcan) 0.4 mg IVP Q2MIN PRN PRN Reason: Opioid Reversal Stop: 01/26/18 23:18 Nitroglycerin (Nitroglycerin) 0.4 mg SL Q5MIN PRN PRN Reason: Chest Pain Stop: 01/26/18 23:07 Ondansetron HCl (Zofran Odt) 4 mg SL Q8HR PRN PRN Reason: Nausea And Vomiting Stop: 01/26/18 21:34 Vitamin B Complex/Vit C/Vit E (Stresstab) 1 each PO DAILY [facility] Stop: 01/26/18 22:01 Last Admin: 08/04/17 08:49 Dose: 1 each Vitamin D (Vitamin D) 1,000 unit PO DAILY [facility] Stop: 01/26/18 22:01 Last Admin: 08/04/17 08:49 Dose: 1,000 unit Vitamin E (Vitamin E) 1,000 unit PO DAILY [facility] Stop: 01/26/18 22:01 Last Admin: 08/04/17 08:49 Dose: 1,000 unit - EKG Interpretation EKG results cardiology: other (SR-ST on tele 90's - 100's, avg Hr past 12 hrs 100) Consult Discharge Plan - Plan Referrals: Thuan Levine MD [Primary Care Provider] - 08/13/17 11:30 am
[2017-08-04] MEDS: *HR* Amiodarone 200 MG TABLET PO SCH (11:38)
--- NOTE | 2017-08-04 12:00 | Internal Med Progress Note ---
Date of Encounter: 08/04/17 Time of Encounter: 09:35 - Assessment and plan (1) Acute respiratory failure with hypoxia Current Visit: Yes Status: Acute Assessment and plan: She continues to be hypoxic. Reevaluate with chest x-ray. Continue O2 supplementation. Treat underlying conditions and wean FiO2 as tolerated. High risk for complications. (2) Acute CHF (congestive heart failure) Current Visit: Yes Status: Acute Assessment and plan: Patient remains hypoxic. We will get chest x-ray today. Unable to give Lasix due to low blood pressure. If chest x-ray shows florid pulmonary edema, will give Lasix with albumin. She did have significant negative fluid balance during her stay here and continues to have good urine output. Qualifiers: Congestive heart failure type: diastolic Qualified Code(s): I50.31 - Acute diastolic (congestive) heart failure (3) Pneumonia Current Visit: Yes Status: Acute Assessment and plan: Continue Levaquin. Day 9 of 10 days planned treatment. Qualifiers: Pneumonia type: due to unspecified organism Laterality: bilateral Lung location: unspecified part of lung Qualified Code(s): J18.9 - Pneumonia, unspecified organism (4) Hypotension Current Visit: Yes Status: Acute Assessment and plan: Blood pressure has actually improved since last night compared to how it has been. Likely due to better control of heart rate. We will continue to monitor blood pressure. Hold atenolol for systolic blood pressure less than 90. Qualifiers: Hypotension type: hypotension due to drug Qualified Code(s): I95.2 - Hypotension due to drugs (5) NSTEMI (non-ST elevated myocardial infarction) Current Visit: Yes Status: Acute Assessment and plan: Conservative management. Continue Plavix, atenolol if tolerated. Continue Lipitor. (6) Hypomagnesemia Current Visit: Yes Status: Acute Assessment and plan: Will recheck magnesium levels. Has been repleted (7) PAF (paroxysmal atrial fibrillation) Current Visit: Yes Status: Acute Assessment and plan: Patient developed A. fib with RVR. Now on amiodarone and has converted to sinus rhythm but remains in sinus tachycardia. We will transition to oral amiodarone later today. Cardiology consult appreciated. Not on anticoagulation due to frail appearance with high risk for falls, age and DNR Comfort Care status. (8) Lung cancer Current Visit: Yes Status: Chronic Assessment and plan: Patient not considering hospice at this time. Wishes to go to rehabilitation. PT OT has been consulted but unable to participate in PT OT so far due to A. fib with RVR and amiodarone. 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 Qualifiers: Laterality: right Lung location: unspecified part of lung Qualified Code( s): C34.91 - Malignant neoplasm of unspecified part of right bronchus or lung - Subjective Interval history: 82-year-old female patient with history of emphysema, asthma, COPD, hypertension , metastatic lung adenocarcinoma admitted here with acute respiratory failure. Treating for non-ST elevation [place], acute hypoxic respiratory failure, acute congestive heart failure and pneumonia. Patient is DNR comfort care. Developed A. fib with RVR. Has been chronically hypotensive. On low-dose atenolol. Tried digoxin but heart rate remained in RVR. Discussed with cardiology and patient started on amiodarone drip yesterday. Heart rate appears to be better controlled and currently in sinus tach. Not on anticoagulation given her CODE STATUS, comorbidities and high risk for falls. Patient is feeling much better today. Denies any palpitations. Breathing well. No chest pain. No dizziness at this time. - Constitutional Vitals: Temp Pulse Resp BP Pulse Ox 98.4 F 104 20 97/58 94 08/04/17 11:24 08/04/17 11:24 08/04/17 11:43 08/04/17 11:24 08/04/17 11:43 General appearance: Present: A&O X 3, pleasant, no acute distress, underweight, answers questions appropriately - Respiratory Respiratory exam: Present: CTAB. Absent: accessory muscle use, rales, rhonchi, wheezes - Cardiovascular Cardiovascular exam: Present: RRR, +S1, +S2, tachycardia. Absent: diastolic murmur, gallop, rubs, systolic murmur - GI/Abdominal GI/Abdominal exam: Present: normal bowel sounds, soft, no peritoneal signs. Absent: distended, tenderness - Extremities Exam Extremities exam: Present: warm, radial pulses palpable and symmetrical. Absent : calf tenderness, cyanotic, pedal edema - Neurological Exam Neurological exam: Present: alert, oriented X3, no focal deficits. Absent: facial droop, speech deficit - Skin Skin exam: Present: dry, intact Internal Medicine: Result - Labs CBC & Chem 7: 08/01/17 02:37 08/01/17 06:55 - ABG Interpretation ABG results: PT/INR, D-dimer PT 12.7 Seconds (9.4-12.1) H 07/27/17 22:00 Consult Discharge Plan - Plan Referrals: Thuan Levine MD [Primary Care Provider] - 08/13/17 11:30 am
[2017-08-04] MEDS: Gabapentin 100 MG CAPSULE PO SCH (20:13)
[2017-08-04] MEDS: Mirtazapine 15 MG TABLET PO SCH (20:13)
[2017-08-05] MEDS: Ipratropium/Albuterol Neb 3 ML IH SCH ×6 (04:01→22:43)
[2017-08-05 05:36] LABS: BUN/Creatinine Ratio 16 (6-26); Basophils % 0.2 %; Blood Urea Nitrogen 9 mg/dL (7-20); Calcium 8.2 mg/dL (8.6-10.8); Carbon Dioxide 33 mEq/L (19-29); Chloride 96 mEq/L (98-109); Eosinophils # 0.1 K/mcL (0.0-0.6); Eosinophils % 0.6 %; Glucose 99 mg/dL (70-99); Hematocrit 30.9 % (35.3-44.9); Hemoglobin 9.5 g/dL (11.5-15.4); Immature Granulocytes % 0.5 % (0-4); Lymphocytes # 0.2 K/mcL (0.6-4.6); Magnesium 1.3 mg/dL (1.6-2.6); Mean Corpuscular HGB Conc 30.7 g/dL (31.6-35.5); Mean Corpuscular Hemoglobin 28.4 pg (28.0-33.3); Mean Corpuscular Volume 92.5 fL (83.0-100.0); Mean Platelet Volume 10.6 fL (9.4-12.4); Monocytes # 0.7 K/mcL (0.0-1.3); Monocytes % 8.7 %; Osmolality,Calculated 279 (280-300); Platelet Count 218 K/mcL (140-400); Potassium 4.3 mEq/L (3.5-4.5); Red Blood Count 3.34 M/mcL (3.82-4.97); Red Cell Distribution Width 14.6 % (11.5-14.5); Sodium 135 mEq/L (136-145); eGFR For African Americans > 60 (> 60); eGFR For Non-African Americans > 60 (> 60)
[2017-08-05] MEDS: *HR* Heparin 5,000 UNIT/ML VIAL SQ SCH ×2 (05:56→17:03)
[2017-08-05 06:15] LABS: Platelet Estimate Normal (Normal)
[2017-08-05] MEDS: Budesonide/Formoterol 160/4.5 MDI IH SCH ×2 (07:44→20:20)
--- NOTE | 2017-08-05 08:20 | Internal Med Progress Note ---
<Victor M Jean-Baptiste - Last Filed: 08/05/17 09:40> Date of Encounter: 08/05/17 Time of Encounter: 08:18 - Assessment and plan (1) Acute respiratory failure with hypoxia Current Visit: Yes Status: Acute Assessment and plan: Patient continues to require 7 L high flow oxygen but is saturating in high 90's , will try to decrease as she can tolerate She appears to have effusions on CXR but diuresis has been restricted given her borderline hypotension Will continue supportive measures with oxygen/BiPAP, breathing treatments (2) NSTEMI (non-ST elevated myocardial infarction) Current Visit: Yes Status: Acute Assessment and plan: Cardiology has signed off as there as she is not candidate for [facility] given her code status, anemia, and ASA intolerance Continue with Plavix as she has allergy to ASA given her previous ulcers Not currently complaining of chest pain (3) Pneumonia Current Visit: Yes Status: Acute Assessment and plan: Currently on 9/10 days treatment of PNA today with Levaquin, which we will continue She was receiving 500 mg q48, but has no issues with her kidney so will increase to 750 mg q24hr Qualifiers: Pneumonia type: due to unspecified organism Laterality: bilateral Lung location: unspecified part of lung Qualified Code(s): J18.9 - Pneumonia, unspecified organism (4) Hypomagnesemia Current Visit: Yes Status: Acute Assessment and plan: Replete again today as levels were 1.3 and recheck in AM (5) PAF (paroxysmal atrial fibrillation) Current Visit: Yes Status: Acute Assessment and plan: Patient still in AFib this morning but rates in 100s while on Amiodarone Atenolol being held if her SBP < 90, which was borderline this morning not candidate for detention anticoagulation given her h/o falls, DNR CC, age (6) Hypotension Current Visit: Yes Status: Acute Assessment and plan: Blood pressure remains borderline but unfortunately cannot receive fluid boluses given her respiratory status secondary to pleural effusions Continue to hold Atenolol if SBP < 90 and she may require fluids/albumin if she were to further drop her pressures Qualifiers: Hypotension type: hypotension due to drug Qualified Code(s): I95.2 - Hypotension due to drugs (7) Lung cancer Current Visit: Yes Status: Chronic Assessment and plan: Patient reconfirmed her DNR-CC status - palliative has signed off Qualifiers: Laterality: right Lung location: unspecified part of lung Qualified Code( s): C34.91 - Malignant neoplasm of unspecified part of right bronchus or lung (8) DVT prophylaxis Current Visit: Yes Status: Acute Assessment and plan: Heparin 5000 units BID - Subjective Interval history: Pt seen and examined. She states she is still having difficulty breathing and has been nauseous but has not vomited. She denies any pain anywhere and has not had any fever, chills, diarrhea or constipation. Did have breakfast without issues. Still hopeful to go to rehab upon discharge. - Constitutional Vitals: Temp Pulse Resp BP Pulse Ox 98.0 F 107 18 88/51 100 08/05/17 07:26 08/05/17 07:26 08/05/17 07:47 08/05/17 07:26 08/05/17 07:47 General appearance: Present: pleasant, no acute distress, underweight, answers questions appropriately - Head Head exam: Present: atraumatic, normocephalic - Eye Eye exam: Present: PERRL, conjuntiva pink, sclera anicteric - Neck Neck exam general surgery: Present: supple, trachea midline. Absent: lymphadenopathy - Respiratory Respiratory exam: Present: rales. Absent: accessory muscle use, rhonchi, wheezes - Cardiovascular Cardiovascular exam: Present: irregular rhythm, +S1, +S2, tachycardia. Absent: diastolic murmur, gallop, rubs, systolic murmur - GI/Abdominal GI/Abdominal exam: Present: normal bowel sounds, soft, no peritoneal signs. Absent: distended, tenderness - Extremities Exam Extremities exam: Present: pedal edema (trace), warm, radial pulses palpable and symmetrical. Absent: calf tenderness, cyanotic - Neurological Exam Neurological exam: Present: alert, no focal deficits. Absent: facial droop, speech deficit - Skin Skin exam: Present: dry, intact Internal Medicine: Result - Labs CBC & Chem 7: 08/05/17 05:00 08/05/17 05:00 Labs: Short CBC 08/05/17 Range/Units 05:00 WBC 8.0 (4.3-11.1) K/mcL Hgb 9.5 L (11.5-15.4) g/dL Hct 30.9 L (35.3-44.9) % Plt Count 218 (140-400) K/mcL Neutrophils # 7.0 (1.6-8.9) K/mcL [facility] 08/05/17 05:00 Sodium 135 L Potassium 4.3 Chloride 96 L Carbon Dioxide 33 H BUN 9 Creatinine 0.56 L Glucose 99 Calcium 8.2 L - ABG Interpretation ABG results: PT/INR, D-dimer PT 12.7 Seconds (9.4-12.1) H 07/27/17 22:00 - Impressions Impressions Chest X-Ray 08/04/17 12:08 IMPRESSION: Persistent bibasilar airspace disease and bilateral pleural effusions right greater than left could represent pneumonia. No significant change. D/ / 08/04/2017 14:23:45 Patrick Mclean MD / Janna Reyes Interpreting Provider: Patrick Mclean MD Consult Discharge Plan - Plan Referrals: Thuan Levine MD [Primary Care Provider] - 08/13/17 11:30 am <Harry Gupta - Last Filed: 08/05/17 15:47> Date of Encounter: 08/05/17 - Constitutional Vitals: Temp Pulse Resp BP Pulse Ox 98.2 F 114 18 100/57 96 08/05/17 11:35 08/05/17 11:35 08/05/17 15:13 08/05/17 11:35 08/05/17 15:13 Internal Medicine: Result - Labs CBC & Chem 7: 08/05/17 05:00 08/05/17 05:00 Labs: Short CBC 08/05/17 Range/Units 05:00 WBC 8.0 (4.3-11.1) K/mcL Hgb 9.5 L (11.5-15.4) g/dL Hct 30.9 L (35.3-44.9) % Plt Count 218 (140-400) K/mcL Neutrophils # 7.0 (1.6-8.9) K/mcL [facility] 08/05/17 05:00 Sodium 135 L Potassium 4.3 Chloride 96 L Carbon Dioxide 33 H BUN 9 Creatinine 0.56 L Glucose 99 Calcium 8.2 L - ABG Interpretation ABG results: PT/INR, D-dimer PT 12.7 Seconds (9.4-12.1) H 07/27/17 22:00 - Impressions Impressions Chest X-Ray 08/04/17 12:08 IMPRESSION: Persistent bibasilar airspace disease and bilateral pleural effusions right greater than left could represent pneumonia. No significant change. D/ / 08/04/2017 14:23:45 Patrick Mclean MD / Janna Reyes Interpreting Provider: Patrick Mclean MD Chest CT 08/05/17 12:30 IMPRESSION: 1. Bibasilar airspace opacities, most prominent in the right lower and middle lobes, concerning for multifocal pneumonia. 2. Bilateral pleural effusions, which are moderate on the right and small on the left. 3. Severe emphysema. 4. Coronary atherosclerosis. D/ / 08/05/2017 13:49:25 Ced Eldridge MD / [facility] Interpreting Provider: Ced Eldridge MD - Attending Attestation I conducted a face to face diagnostic evaluation of this patient and my medical decision-making was reviewed with the Resident Physician, Dr Victor M Jean-Baptiste. I agree with the documented findings, disposition and treatment plan as described except to the extent set forth below: Examination the patient is cachectic in moderate distress due to nausea, lung exam reveals bilateral crackles. Plan: Continue symptom management. PT OT. Continue treating heart failure. I discussed the case with positive care. The patient is hospice eligible however she does not currently agreed to hospice. All listed medical problems are new to me today. Harry Gupta MD
[2017-08-05] MEDS ORDERED: Magnesium Sulfate 1 GM in 0.9 % Sodium Chloride 50 ML IVPB ONE (09:46)
[2017-08-05] MEDS: levoFLOXacin 500 MG TABLET PO SCH (10:00)
[2017-08-05] MEDS: Furosemide 20 MG TABLET PO SCH (10:00)
[2017-08-05] MEDS: *HR* Amiodarone 200 MG TABLET PO SCH (10:00)
--- NOTE | 2017-08-05 10:30 | Palliative Progress Note ---
Date of Encounter: 08/05/17 Time of Encounter: 09:55 - Assessment and plan (1) Dyspnea Current Visit: Yes Status: Acute Assessment and plan: Has required high flow oxygen, continues with Nebs - pleural effusions but hypotensive, so diuretics an issue. Hospitalist following closely. Qualifiers: Dyspnea type: unspecified Qualified Code(s): R06.00 - Dyspnea, unspecified (2) Counseling regarding advanced care planning and goals of care Current Visit: Yes Status: Acute Assessment and plan: She is quite nauseated this am, and does not want to speak much. She does state that she hopes "things getter better" so she can go to rehab. Attempted to discuss clinical issues, my concerns for her setbacks and fraility, she does not want to discuss at this time. No family is present. (3) Acute respiratory failure with hypoxia Current Visit: Yes Status: Acute (4) Acute CHF (congestive heart failure) Current Visit: Yes Status: Acute Qualifiers: Congestive heart failure type: diastolic Qualified Code(s): I50.31 - Acute diastolic (congestive) heart failure (5) COPD exacerbation Current Visit: Yes Status: Acute (6) Lung cancer Current Visit: Yes Status: Chronic Qualifiers: Laterality: right Lung location: unspecified part of lung Qualified Code( s): C34.91 - Malignant neoplasm of unspecified part of right bronchus or lung (7) NSTEMI (non-ST elevated myocardial infarction) Current Visit: Yes Status: Acute - Time Spent With Patient Total time spent is greater than 50% in coordination of care (as documented) at patient's floor/unit and/or counseling patient: - Subjective Interval history: Patient awake and alert, c/o nausea - has just received Zofran SL. She is quiet and states "just need to lay still until nausea better". Still with significant dyspnea at rest. Began on Amiodarone r/t poorly controlled afib. No family present. - Constitutional Vitals: Abnormal lab results RBC 3.34 M/mcL (3.82-4.97) L 08/05/17 05:00 Hgb 9.5 g/dL (11.5-15.4) L 08/05/17 05:00 Hct 30.9 % (35.3-44.9) L 08/05/17 05:00 MCHC 30.7 g/dL (31.6-35.5) L 08/05/17 05:00 RDW 14.6 % (11.5-14.5) H 08/05/17 05:00 Lymphocytes # 0.2 K/mcL (0.6-4.6) L 08/05/17 05:00 Hypersegmented Neuts Present (Not Present) A 07/27/17 22:00 Reactive Lymphocytes Present (Not Present) A 07/30/17 06:48 Smudge Cells Present (Not Present) A 07/30/17 06:48 Polychromasia 1+ (Not Present) A 07/30/17 06:48 Target Cells 1+ (Not Present) A 07/30/17 06:48 Schistocytes 1+ (Not Present) A 07/30/17 06:48 PT 12.7 Seconds (9.4-12.1) H 07/27/17 22:00 Sodium 135 mEq/L (136-145) L 08/05/17 05:00 Chloride 96 mEq/L (98-109) L 08/05/17 05:00 Carbon Dioxide 33 mEq/L (19-29) H 08/05/17 05:00 Creatinine 0.56 mg/dL (0.57-1.11) L 08/05/17 05:00 Calculated Osmolality 279 (280-300) L 08/05/17 05:00 Calcium 8.2 mg/dL (8.6-10.8) L 08/05/17 05:00 Magnesium 1.3 mg/dL (1.6-2.6) L 08/05/17 05:00 Troponin I 1.25 ng/mL (0-0.03) H* 07/28/17 05:57 General appearance: Present: mild distress - Respiratory Respiratory exam: Present: decreased breath sounds, CTAB - Cardiovascular Cardiovascular exam: Present: +S1, +S2, tachycardia - GI/Abdominal GI/Abdominal exam: Present: normal bowel sounds, soft - Extremities Exam Extremities exam: Present: normal capillary refill, normal inspection - Neurological Exam Neurological exam: Present: alert, oriented X3 Additional comments: Generalized weakness - Skin Skin exam: Present: dry, pallor, warm Palliative Quality Palliative Quality: Screen for Code Status: Yes, Screen for Goals of Care: Yes, Screen for Pain: Yes, If Pain Regimen Started, Initiate Bowel Regimen: NA, Screen for Nausea/Vomitting: Yes Code Status: 07/27/17 21:33 Resuscitation Status: Active [RES] Routine Comment: Resuscitation Status: DNR-Comfort Care - Labs CBC & Chem 7: 08/05/17 05:00 08/05/17 05:00 Labs: Laboratory Results - last 24 hr 08/05/17 08/05/17 05:00 05:00 WBC 8.0 RBC 3.34 L Hgb 9.5 L Hct 30.9 L MCV 92.5 MCH 28.4 MCHC 30.7 L RDW 14.6 H Plt Count 218 MPV 10.6 Immature Gran % 0.5 Seg Neutrophils % 88.0 Lymphocytes % 2.0 Monocytes % 8.7 Eosinophils % 0.6 Basophils % 0.2 Neutrophils # 7.0 Lymphocytes # 0.2 L Monocytes # 0.7 Eosinophils # 0.1 Basophils # 0.0 Platelet Estimate Normal Sodium 135 L Potassium 4.3 Chloride 96 L Carbon Dioxide 33 H BUN 9 Creatinine 0.56 L Est GFR ( Amer) > 60 Est GFR (Non-Af Amer) > 60 BUN/Creatinine Ratio 16 Glucose 99 Calculated Osmolality 279 L Calcium 8.2 L Magnesium 1.3 L - Impressions Impressions Chest X-Ray 08/04/17 12:08 IMPRESSION: Persistent bibasilar airspace disease and bilateral pleural effusions right greater than left could represent pneumonia. No significant change. D/ / 08/04/2017 14:23:45 Patrick Mclean MD / Janna Reyes Interpreting Provider: Patrick Mclean MD - ABG Interpretation ABG results: PT/INR, D-dimer PT 12.7 Seconds (9.4-12.1) H 07/27/17 22:00 Consult Discharge Plan - Plan Referrals: Thuan Levine MD [Primary Care Provider] - 08/13/17 11:30 am
--- NOTE | 2017-08-05 10:40 | Electrocardiograph Report ---
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
[2017-08-05] MEDS ORDERED: Ondansetron 4 MG/2 ML VIAL IVP PRN (12:15)
[2017-08-05] MEDS: *HR* Promethazine 25 MG/ML VIAL IVP PRN ×2 (12:27→20:18)
[2017-08-05] MEDS: Cholecalciferol (D-3) 1,000 UNIT TABLET PO SCH (16:57)
[2017-08-05] MEDS: Multivit/Ca/Min/Fe/FA 1 TAB TABLET PO SCH (16:57)
[2017-08-05] MEDS: Vitamin B Complex/Vit C/Vit E 1 EACH TABLET PO SCH (16:57)
[2017-08-05] MEDS: Gabapentin 100 MG CAPSULE PO SCH (20:21)
[2017-08-05] MEDS: Mirtazapine 15 MG TABLET PO SCH (20:21)
[2017-08-06] MEDS: Ipratropium/Albuterol Neb 3 ML IH SCH ×5 (04:02→20:42)
[2017-08-06 05:00] LABS: Hematocrit 31.7 % (35.3-44.9); Hemoglobin 9.9 g/dL (11.5-15.4); Immature Granulocytes % 0.5 % (0-4); Lymphocytes % 1.7 %; Mean Corpuscular HGB Conc 31.2 g/dL (31.6-35.5); Mean Corpuscular Hemoglobin 28.9 pg (28.0-33.3); Mean Corpuscular Volume 92.4 fL (83.0-100.0); Mean Platelet Volume 10.4 fL (9.4-12.4); Monocytes % 7.9 %; Platelet Count 226 K/mcL (140-400); Red Blood Count 3.43 M/mcL (3.82-4.97); Red Cell Distribution Width 14.4 % (11.5-14.5); Segmented Neutrophils % 89.8 %
[2017-08-06 05:01] LABS: Basophils % 0.1 %; Lymphocytes # 0.1 K/mcL (0.6-4.6); Monocytes # 0.6 K/mcL (0.0-1.3)
[2017-08-06 05:28] LABS: BUN/Creatinine Ratio 25 (6-26); Blood Urea Nitrogen 13 mg/dL (8-23); Calcium 8.5 mg/dL (8.6-10.3); Carbon Dioxide 38 mEq/L (23-29); Chloride 95 mEq/L (98-107); Glucose 107 mg/dL (70-105); Osmolality,Calculated 287 (280-300); Potassium 4.1 mEq/L (3.5-5.1); Sodium 138 mEq/L (136-145); eGFR For African Americans > 60 (> 60); eGFR For Non-African Americans > 60 (> 60)
[2017-08-06 05:33] LABS: Neutrophils # 6.8 K/mcL (1.6-8.9)
[2017-08-06] MEDS: *HR* Heparin 5,000 UNIT/ML VIAL SQ SCH ×2 (05:43→18:32)
[2017-08-06 06:15] LABS: Platelet Estimate Normal (Normal)
[2017-08-06] MEDS: Budesonide/Formoterol 160/4.5 MDI IH SCH ×2 (07:24→20:42)
[2017-08-06] MEDS ORDERED: *HR* Metoprolol 5 MG/5 ML VIAL IVP ONE (08:47)
--- NOTE | 2017-08-06 08:50 | Internal Med Progress Note ---
<Victor M Jean-Baptiste - Last Filed: 08/06/17 14:09> Date of Encounter: 08/06/17 Time of Encounter: 08:49 - Assessment and plan (1) Acute respiratory failure with hypoxia Current Visit: Yes Status: Acute Assessment and plan: Patient has been on 6 L high flow which is slightly better than yesterday, will try to continue to decrease as she can tolerate CT scan did reveal moderate right-sided effusion, but will not pursue thoracentesis at this time given her improved clinical status and DNR-CC Will continue supportive measures with oxygen/BiPAP, breathing treatments Possible discharge tomorrow if she goes back on her home dose of 4 L oxygen, pending placement (2) NSTEMI (non-ST elevated myocardial infarction) Current Visit: Yes Status: Acute Assessment and plan: Cardiology has signed off as there as she is not candidate for [facility] given her code status, anemia, and ASA intolerance Continue with Plavix as she has allergy to ASA given her previous ulcers Not currently complaining of chest pain (3) Pneumonia Current Visit: Yes Status: Acute Assessment and plan: Currently on 10 days treatment of PNA today with Levaquin, which we will continue She was receiving 500 mg q48, but has no issues with her kidney so will increase to 750 mg q24hr CTS related to demonstrate persistent bilateral pneumonia so she may need additional doses of antibiotic especially considering she was undertreated Qualifiers: Pneumonia type: due to unspecified organism Laterality: bilateral Lung location: unspecified part of lung Qualified Code(s): J18.9 - Pneumonia, unspecified organism (4) Hypomagnesemia Current Visit: Yes Status: Acute Assessment and plan: Levels were improved at 1.8 this morning (5) PAF (paroxysmal atrial fibrillation) Current Visit: Yes Status: Acute Assessment and plan: Patient still in AFib this morning with higher rates in the 120s Her BP was improved so IV 5 mg metoprolol was given and her HR is low 100s not candidate for long-term anticoagulation given her h/o falls, DNR CC, age (6) Lung cancer Current Visit: Yes Status: Chronic Qualifiers: Laterality: right Lung location: unspecified part of lung Qualified Code( s): C34.91 - Malignant neoplasm of unspecified part of right bronchus or lung (7) DVT prophylaxis Current Visit: Yes Status: Acute Assessment and plan: Heparin 5000 units BID - Subjective Interval history: Pt seen and examined. She states her breathing has improved somewhat since yesterday and she has not had any episodes of nausea or vomiting overnight. Denies any pain, fevers, diarrhea, or constipation. - Constitutional Vitals: Temp Pulse Resp BP Pulse Ox 97.9 F 114 20 118/73 99 08/06/17 07:05 08/06/17 07:05 08/06/17 08:42 08/06/17 07:05 08/06/17 08:42 General appearance: Present: pleasant, no acute distress, underweight, answers questions appropriately - Head Head exam: Present: atraumatic, normocephalic - Eye Eye exam: Present: PERRL, conjuntiva pink, sclera anicteric - Neck Neck exam general surgery: Present: supple, trachea midline. Absent: lymphadenopathy - Respiratory Respiratory exam: Present: decreased breath sounds. Absent: accessory muscle use, rales, rhonchi, wheezes - Cardiovascular Cardiovascular exam: Present: irregular rhythm, +S1, +S2, tachycardia. Absent: diastolic murmur, gallop, rubs, systolic murmur - GI/Abdominal GI/Abdominal exam: Present: normal bowel sounds, soft, no peritoneal signs. Absent: distended, tenderness - Extremities Exam Extremities exam: Present: warm, radial pulses palpable and symmetrical. Absent : calf tenderness, cyanotic, pedal edema - Neurological Exam Neurological exam: Present: alert, oriented X3, no focal deficits. Absent: facial droop, speech deficit - Skin Skin exam: Present: dry, intact Internal Medicine: Result - Labs CBC & Chem 7: 08/06/17 04:37 08/06/17 04:37 Labs: Short CBC 08/06/17 Range/Units 04:37 WBC 7.6 (4.3-11.1) K/mcL Hgb 9.9 L (11.5-15.4) g/dL Hct 31.7 L (35.3-44.9) % Plt Count 226 (140-400) K/mcL Neutrophils # 6.8 (1.6-8.9) K/mcL BMP 08/06/17 04:37 Sodium 138 Potassium 4.1 Chloride 95 L Carbon Dioxide 38 H BUN 13 Creatinine 0.51 L Glucose 107 H Calcium 8.5 L - ABG Interpretation ABG results: PT/INR, D-dimer PT 12.7 Seconds (9.4-12.1) H 07/27/17 22:00 - Impressions Impressions Chest X-Ray 08/04/17 12:08 IMPRESSION: Persistent bibasilar airspace disease and bilateral pleural effusions right greater than left could represent pneumonia. No significant change. D/ / 08/04/2017 14:23:45 Patrick Mclean MD / [facility] Reyes Interpreting Provider: Patrick Mclean MD Chest CT 08/05/17 12:30 IMPRESSION: 1. Bibasilar airspace opacities, most prominent in the right lower and middle lobes, concerning for multifocal pneumonia. 2. Bilateral pleural effusions, which are moderate on the right and small on the left. 3. Severe emphysema. 4. Coronary atherosclerosis. D/ / 08/05/2017 13:49:25 Ced Eldridge MD / [facility] Interpreting Provider: Ced Eldridge MD Consult Discharge Plan - Plan Referrals: Thuan Levine MD [Primary Care Provider] - 08/13/17 11:30 am <Harry Gupta - Last Filed: 08/06/17 18:30> Date of Encounter: 08/06/17 - Constitutional Vitals: Temp Pulse Resp BP Pulse Ox 97.8 F 95 16 123/79 90 08/06/17 16:18 08/06/17 16:24 08/06/17 16:18 08/06/17 16:18 08/06/17 16:18 Internal Medicine: Result - Labs CBC & Chem 7: 08/06/17 04:37 08/06/17 04:37 Labs: Short CBC 08/06/17 Range/Units 04:37 WBC 7.6 (4.3-11.1) K/mcL Hgb 9.9 L (11.5-15.4) g/dL Hct 31.7 L (35.3-44.9) % Plt Count 226 (140-400) K/mcL Neutrophils # 6.8 (1.6-8.9) K/mcL BMP 08/06/17 04:37 Sodium 138 Potassium 4.1 Chloride 95 L Carbon Dioxide 38 H BUN 13 Creatinine 0.51 L Glucose 107 H Calcium 8.5 L - ABG Interpretation ABG results: PT/INR, D-dimer PT 12.7 Seconds (9.4-12.1) H 07/27/17 22:00 - Impressions Impressions Chest CT 08/05/17 12:30 IMPRESSION: 1. Bibasilar airspace opacities, most prominent in the right lower and middle lobes, concerning for multifocal pneumonia. 2. Bilateral pleural effusions, which are moderate on the right and small on the left. 3. Severe emphysema. 4. Coronary atherosclerosis. D/ / 08/05/2017 13:49:25 Ced Eldridge MD / [facility] Interpreting Provider: Ced Eldridge MD - Attending Attestation I conducted a face to face diagnostic evaluation of this patient and my medical decision-making was reviewed with the Resident Physician, Dr Victor M Jean-Baptiste. I agree with the documented findings, disposition and treatment plan as described except to the extent set forth below: On exam she is well-appearing, no acute distress. Heart distant cardiac and regular S1-S2. Breath sounds are shallow bilaterally abdomen is soft. Continue with Lasix, fluid balance. Pending placement. Follow-up with palliative care. She is at very high risk for morbidity mortality and complications due to advanced respiratory failure. Harry Gupta MD
[2017-08-06] MEDS: *HR* Amiodarone 200 MG TABLET PO SCH (09:04)
[2017-08-06] MEDS: Vitamin B Complex/Vit C/Vit E 1 EACH TABLET PO SCH (09:04)
[2017-08-06] MEDS: levoFLOXacin 750 MG TABLET PO SCH (09:04)
[2017-08-06] MEDS: Multivit/Ca/Min/Fe/FA 1 TAB TABLET PO SCH (09:04)
[2017-08-06] MEDS: Furosemide 20 MG TABLET PO SCH (09:04)
[2017-08-06] MEDS: Cholecalciferol (D-3) 1,000 UNIT TABLET PO SCH (09:05)
--- NOTE | 2017-08-06 09:47 | Palliative Progress Note ---
Date of Encounter: 08/06/17 Time of Encounter: 09:30 - Assessment and plan (1) Dyspnea Current Visit: Yes Status: Acute Assessment and plan: Improved today - hopefully oxygen can continue to be weaned down. Continues with scheduled nebs/symbicort. Continues treatment for pneumonia. Qualifiers: Dyspnea type: unspecified Qualified Code(s): R06.00 - Dyspnea, unspecified (2) Constipation Current Visit: Yes Status: Acute Assessment and plan: Begin [place] bid and monitor (3) Counseling regarding advanced care planning and goals of care Current Visit: Yes Status: Acute Assessment and plan: She continues to desire to go to rehab. PT/OT had discharged pt yesterday as documented that nursing said inappropriate. She is feeling better and willing to participate. Discussed with pt CT yesterday - with history of lung ca, severe emphysema, and pneumonia still present after many days of treatment - concerned with lack of progress. Stated hospitalist team would likely further discuss. (4) Acute respiratory failure with hypoxia Current Visit: Yes Status: Acute (5) Acute CHF (congestive heart failure) Current Visit: Yes Status: Acute Qualifiers: Congestive heart failure type: diastolic Qualified Code(s): I50.31 - Acute diastolic (congestive) heart failure (6) COPD exacerbation Current Visit: Yes Status: Acute (7) Lung cancer Current Visit: Yes Status: Chronic Qualifiers: Laterality: right Lung location: unspecified part of lung Qualified Code( s): C34.91 - Malignant neoplasm of unspecified part of right bronchus or lung (8) NSTEMI (non-ST elevated myocardial infarction) Current Visit: Yes Status: Acute - Time Spent With Patient Total time spent is greater than 50% in coordination of care (as documented) at patient's floor/unit and/or counseling patient: - Subjective Interval history: Patient feeling better - less nausea, and states her breathing is better. Oxygen down to 6 Liters - d/w nursing she has severe emphysema, so probably goal of saturation around 92 % would be feasible. No BM x5 days - Constitutional Vitals: Abnormal lab results RBC 3.43 M/mcL (3.82-4.97) L 08/06/17 04:37 Hgb 9.9 g/dL (11.5-15.4) L 08/06/17 04:37 Hct 31.7 % (35.3-44.9) L 08/06/17 04:37 MCHC 31.2 g/dL (31.6-35.5) L 08/06/17 04:37 Lymphocytes # 0.1 K/mcL (0.6-4.6) L 08/06/17 04:37 Hypersegmented Neuts Present (Not Present) A 07/27/17 22:00 Reactive Lymphocytes Present (Not Present) A 07/30/17 06:48 Smudge Cells Present (Not Present) A 07/30/17 06:48 Polychromasia 1+ (Not Present) A 07/30/17 06:48 Target Cells 1+ (Not Present) A 07/30/17 06:48 Schistocytes 1+ (Not Present) A 07/30/17 06:48 PT 12.7 Seconds (9.4-12.1) H 07/27/17 22:00 Chloride 95 mEq/L (98-107) L 08/06/17 04:37 Carbon Dioxide 38 mEq/L (23-29) H 08/06/17 04:37 Creatinine 0.51 mg/dL (0.60-1.20) L 08/06/17 04:37 Glucose 107 mg/dL (70-105) H 08/06/17 04:37 Calcium 8.5 mg/dL (8.6-10.3) L 08/06/17 04:37 Troponin I 1.25 ng/mL (0-0.03) H* 07/28/17 05:57 General appearance: Present: no acute distress - Respiratory Respiratory exam: Present: decreased breath sounds - Cardiovascular Cardiovascular exam: Present: irregular rhythm - GI/Abdominal GI/Abdominal exam: Present: normal bowel sounds, soft - Extremities Exam Extremities exam: Present: normal capillary refill, normal inspection - Neurological Exam Neurological exam: Present: alert, oriented X3, strengths equal and symetr throughout Additional comments: generalized weakness - Skin Skin exam: Present: dry, pallor, warm Palliative Quality Palliative Quality: Screen for Code Status: Yes, Screen for Goals of Care: Yes, Screen for Pain: Yes, If Pain Regimen Started, Initiate Bowel Regimen: NA, Screen for Nausea/Vomitting: Yes Code Status: 07/27/17 21:33 Resuscitation Status: Active [RES] Routine Comment: Resuscitation Status: DNR-Comfort Care - Labs CBC & Chem 7: 08/06/17 04:37 08/06/17 04:37 Labs: Laboratory Results - last 24 hr 08/06/17 08/06/17 08/06/17 04:37 04:37 04:37 WBC 7.6 RBC 3.43 L Hgb 9.9 L Hct 31.7 L MCV 92.4 MCH 28.9 MCHC 31.2 L RDW 14.4 Plt Count 226 MPV 10.4 Immature Gran % 0.5 Seg Neutrophils % 89.8 Lymphocytes % 1.7 Monocytes % 7.9 Eosinophils % 0.0 Basophils % 0.1 Neutrophils # 6.8 Lymphocytes # 0.1 L Monocytes # 0.6 Eosinophils # 0.0 Basophils # 0.0 Platelet Estimate Normal Sodium 138 Potassium 4.1 Chloride 95 L Carbon Dioxide 38 H BUN 13 Creatinine 0.51 L Est GFR ( Amer) > 60 Est GFR (Non-Af Amer) > 60 BUN/Creatinine Ratio 25 Glucose 107 H Calculated Osmolality 287 Calcium 8.5 L Magnesium 1.8 - Impressions Impressions Chest X-Ray 08/04/17 12:08 IMPRESSION: Persistent bibasilar airspace disease and bilateral pleural effusions right greater than left could represent pneumonia. No significant change. D/ / 08/04/2017 14:23:45 Patrick Mclean MD / Janna Reyes Interpreting Provider: Patrick Mclean MD Chest CT 08/05/17 12:30 IMPRESSION: 1. Bibasilar airspace opacities, most prominent in the right lower and middle lobes, concerning for multifocal pneumonia. 2. Bilateral pleural effusions, which are moderate on the right and small on the left. 3. Severe emphysema. 4. Coronary atherosclerosis. D/ / 08/05/2017 13:49:25 [facility] Interpreting Provider: Ced Eldridge MD - ABG Interpretation ABG results: PT/INR, D-dimer PT 12.7 Seconds (9.4-12.1) H 07/27/17 22:00 Consult Discharge Plan - Plan Referrals: Thuan Levine MD [Primary Care Provider] - 08/13/17 11:30 am
[2017-08-06] MEDS: Sennosides/Docusate Sodium TABLET PO SCH (21:21)
[2017-08-06] MEDS: Mirtazapine 15 MG TABLET PO SCH (21:21)
[2017-08-06] MEDS: Gabapentin 100 MG CAPSULE PO SCH (21:21)
[2017-08-07] MEDS: Ipratropium/Albuterol Neb 3 ML IH SCH ×7 (00:49→23:21)
[2017-08-07 04:07] LABS: Basophils % 0.3 %; Eosinophils % 0.1 %; Hematocrit 30.3 % (35.3-44.9); Hemoglobin 9.3 g/dL (11.5-15.4); Immature Granulocytes % 0.5 % (0-4); Lymphocytes # 0.3 K/mcL (0.6-4.6); Lymphocytes % 3.4 %; Mean Corpuscular HGB Conc 30.7 g/dL (31.6-35.5); Mean Corpuscular Hemoglobin 28.3 pg (28.0-33.3); Mean Corpuscular Volume 92.1 fL (83.0-100.0); Mean Platelet Volume 10.4 fL (9.4-12.4); Monocytes # 0.7 K/mcL (0.0-1.3); Monocytes % 9.3 %; Neutrophils # 6.6 K/mcL (1.6-8.9); Platelet Count 233 K/mcL (140-400); Red Blood Count 3.29 M/mcL (3.82-4.97); Red Cell Distribution Width 14.3 % (11.5-14.5); Segmented Neutrophils % 86.4 %
[2017-08-07 04:22] LABS: BUN/Creatinine Ratio 29 (6-26); Blood Urea Nitrogen 16 mg/dL (8-23); Calcium 8.4 mg/dL (8.6-10.3); Carbon Dioxide 38 mEq/L (23-29); Chloride 95 mEq/L (98-107); Glucose 90 mg/dL (70-105); Osmolality,Calculated 291 (280-300); Potassium 3.8 mEq/L (3.5-5.1); Sodium 140 mEq/L (136-145); eGFR For African Americans > 60 (> 60); eGFR For Non-African Americans > 60 (> 60)
[2017-08-07] MEDS: *HR* Heparin 5,000 UNIT/ML VIAL SQ SCH ×2 (06:04→18:19)
[2017-08-07] MEDS: Budesonide/Formoterol 160/4.5 MDI IH SCH ×2 (07:52→20:14)
--- NOTE | 2017-08-07 08:05 | Discharge Summary ---
<Victor M Jean-Baptiste - Last Filed: 08/07/17 11:05> Date of Encounter: 08/07/17 Time of Encounter: 08:01 - Discharge Diagnosis (1) Acute respiratory failure with hypoxia Priority: Primary Status: Acute (2) NSTEMI (non-ST elevated myocardial infarction) Priority: Secondary Status: Acute (3) Pneumonia Priority: Secondary Status: Acute Qualifiers: Pneumonia type: due to unspecified organism Laterality: bilateral Lung location: unspecified part of lung Qualified Code(s): J18.9 - Pneumonia, unspecified organism (4) Hypomagnesemia Priority: Secondary Status: Acute (5) PAF (paroxysmal atrial fibrillation) Priority: Secondary Status: Acute (6) Lung cancer Priority: Secondary Status: Chronic Qualifiers: Laterality: right Lung location: unspecified part of lung Qualified Code( s): C34.91 - Malignant neoplasm of unspecified part of right bronchus or lung (7) DVT prophylaxis Priority: Secondary Status: Acute - Discharge Medications Prescriptions: Ondansetron ODT [Zofran ODT] 4 mg SL Q6HR #30 tab.rapdis Amiodarone [Cordarone] 200 mg PO DAILY #30 tablet Atorvastatin [Lipitor] 40 mg PO HS #30 tablet Clopidogrel [Plavix] 75 mg PO DAILY #30 tablet levoFLOXacin [Levaquin] 750 mg PO DAILY #3 tablet Home Medications: Atenolol [Tenormin] 25 mg PO QAM 10/22/16 [History] Gabapentin [Neurontin] 200 mg PO HS 01/06/17 [History] Albuterol Sulfate [Ventolin Hfa] 2 puff IH Q4-6H PRN 03/12/17 [History] Budesonide/Formoterol 160/4.5 [Symbicort 160/4.5] 2 puff IH BID 03/12/17 [ History] Oxygen 1 each .ROUTE HS PRN 03/12/17 [History] Mirtazapine [Remeron] 15 mg PO HS 06/24/17 [History] Atenolol [Tenormin] 12.5 mg PO HS 07/08/17 [History] Calcium Carbonate [Calcium] 600 mg PO BID 07/08/17 [History] Cholecalciferol (D-3) [Vitamin D] 1,000 unit PO DAILY 07/08/17 [History] Multivitamin [One Daily Multivitamin] 1 tab PO DAILY 07/08/17 [History] Vitamin B Complex [B Complex] 1 tab PO DAILY 07/08/17 [History] Vitamin E Mixed [Vitamin E] 1,000 unit PO DAILY 07/08/17 [History] Amiodarone [Cordarone] 200 mg PO DAILY #30 tablet 08/07/17 [Rx] Atorvastatin [Lipitor] 40 mg PO HS #30 tablet 08/07/17 [Rx] Clopidogrel [Plavix] 75 mg PO DAILY #30 tablet 08/07/17 [Rx] Ondansetron ODT [Zofran ODT] 4 mg SL Q6HR #30 tab.rapdis 08/07/17 [Rx] levoFLOXacin [Levaquin] 750 mg PO DAILY #3 tablet 08/07/17 [Rx] Allergies/Adverse Reactions: 3 Allergy/AdvReac Type Severity Reaction Status Date / Time aspirin Allergy Unknown BLEEDING Verified 07/08/17 11:49 ULCER lidocaine [From Lidoderm] AdvReac Redness of Verified 07/08/17 11:49 Skin Procedures/tests Complete & Pending: Procedures Performed prior 72 hours Category Date Time Status CT chest w/o contrast [CT chest wo con] [CT] Routine Cat Scan 08/05/17 12:30 Completed Date of admission: 07/28/17 03:59 Primary care physician: Thuan Levine MD Consults: 07/27/17 23:08 Consult to Cardiology [CONS] Routine Comment: Consulting Provider: Cardiology [place] Reason for Consult: NSTEMI Call Completed: Yes 07/28/17 12:49 Consult to Bleach Packer [CONS] Routine Reason for SW Consult: Patient would like to go to [facility] for rehab at discharge 08/01/17 13:25 Consult to Palliative Care [CONS] Routine Comment: Consulting Provider: Palliative Care [place] Reason for Consult: COmfor care patient for possible hospice Call Completed: Yes 08/02/17 07:46 Consult to Occupational Therapy [CONS] Routine Comment: Evaluate, develop and implement POC Reason for Consult: Gen weakness Consult to Physical Therapy [CONS] Routine Comment: Evaluate, develop and implement POC Reason for Consult: Gen weakness 08/06/17 09:43 Consult to Physical Therapy [CONS] Routine Comment: Evaluate, develop and implement POC Reason for Consult: pt desires rehab at [facility]. She is feeling better, willing to participate 08/06/17 09:44 Consult to Occupational Therapy [CONS] Routine Comment: Evaluate, develop and implement POC Reason for Consult: Pt desires [facility] for re[facility]. Feeling better and willing to participate Discharging clinician: Victor M Jean-Baptiste Anticipated date of discharge: 08/07/17 - Patient Status Disposition: Transfer SNF Condition: Fair Functional capacity at discharge: uses cane/walker Overall status at discharge: patient is progressing back to baseline - Discharge Instructions Instructions: Myocardial Infarction (DC), Heart Failure (DC), Acute Respiratory Distress Syndrome (DC), Pneumonia (DC) Follow Up With: [facility] [Provider Group] Thuan Levine MD [Primary Care Provider] - (PATIENT IS GOING TO [facility] NO PCP APPOINTMENT NEEDED) Additional Instructions: Please follow up with your PCP within 1 week Please follow up with cardiology within 2 weeks - Diet and Activity Activity: increase activity as tolerated Diet: advance to your usual diet Hospital course: Ms. Darrel Maier is a 82 year old female who presented with shortness of breath and weakness. She was found to have an STEMI as her initial troponin was 0.09 and repeat was over 2.0 and cardiology was consulted. Her CODE STATUS is DNR comfort care and after discussion with cardiology, patient elected to not have a left heart catheterization. She was started on medical management with Plavix, statin, beta jatin. Palliative care was also consulted for discussion of hospice in this patient with lung cancer, however patient was not interested and wanted to go to rehabilitation to get better. X-ray showed bilateral pneumonia and she was started on Levaquin. Patient did have an episode of A. fib with RVR and was started on amiodarone drip. She converted back to normal sinus rhythm and was placed on amiodarone oral and also beta jatin. She is a poor candidate for long-term anticoagulation due to her CODE STATUS and anemia and will be on Plavix given her allergy to aspirin. Patient currently says her breathing is much better and is back on her home dose of 4 L of oxygen this morning and saturating in the mid 90s. She denies pain anywhere in her heart rate is also been in the 90s on her oral rate control medications. Patient will be going back to [facility] upon discharge and will have 3 more days of Levaquin for her pneumonia. - Time Spent with Patient Total time spent providing and/or coordinating discharge services: - Constitutional Vitals: Temp Pulse Resp BP Pulse Ox 98.0 F 93 18 96/64 95 08/07/17 06:56 08/07/17 06:56 08/07/17 07:53 08/07/17 06:56 08/07/17 07:53 General appearance: Present: pleasant, no acute distress, underweight, answers questions appropriately - Head Head exam: Present: atraumatic, normocephalic - Eye Eye exam: Present: PERRL, conjuntiva pink, sclera anicteric - Neck Neck exam general surgery: Present: supple, trachea midline. Absent: lymphadenopathy - Respiratory Respiratory exam: Present: CTAB. Absent: accessory muscle use, rales, rhonchi, wheezes - Cardiovascular Cardiovascular exam: Present: RRR, +S1, +S2. Absent: diastolic murmur, gallop, rubs, systolic murmur - GI/Abdominal GI/Abdominal exam: Present: normal bowel sounds, soft, no peritoneal signs. Absent: distended, tenderness - Extremities Exam Extremities exam: Present: warm, radial pulses palpable and symmetrical. Absent : calf tenderness, cyanotic, pedal edema - Neurological Exam Neurological exam: Present: alert, no focal deficits. Absent: facial droop, speech deficit - Skin Skin exam: Present: dry, intact <Harry Gupta - Last Filed: 08/07/17 18:55> Date of Encounter: 08/07/17 Procedures/tests Complete & Pending: Procedures Performed prior 72 hours Category Date Time Status CT chest w/o contrast [CT chest wo con] [CT] Routine Cat Scan 08/05/17 12:30 Completed Date of admission: 07/28/17 03:59 Primary care physician: Thuan Levine MD Consults: 07/27/17 23:08 Consult to Cardiology [CONS] Routine Comment: Consulting Provider: [facility] Reason for Consult: NSTEMI Call Completed: Yes 07/28/17 12:49 Consult to Bleach Packer [CONS] Routine Reason for SW Consult: Patient would like to go to [facility] for rehab at discharge 08/01/17 13:25 Consult to Palliative Care [CONS] Routine Comment: Consulting Provider: Palliative [facility] Reason for Consult: COmfor care patient for possible hospice Call Completed: Yes 08/02/17 07:46 Consult to Occupational Therapy [CONS] Routine Comment: Evaluate, develop and implement POC Reason for Consult: Gen weakness Consult to Physical Therapy [CONS] Routine Comment: Evaluate, develop and implement POC Reason for Consult: Gen weakness 08/06/17 09:43 Consult to Physical Therapy [CONS] Routine Comment: Evaluate, develop and implement POC Reason for Consult: pt desires rehab at [facility]. She is feeling better, willing to participate 08/06/17 09:44 Consult to Occupational Therapy [CONS] Routine Comment: Evaluate, develop and implement POC Reason for Consult: Pt desires [facility] for [facility]. Feeling better and willing to participate Hospital course: Ms. Darrel Maier is a 82 year old female - Time Spent with Patient Total time spent providing and/or coordinating discharge services: - Constitutional Vitals: Temp Pulse Resp BP Pulse Ox 98.4 F 112 18 86/61 92 08/07/17 17:18 08/07/17 18:24 08/07/17 18:24 08/07/17 17:18 08/07/17 18:24 - Attending Attestation I conducted a face to face diagnostic evaluation of this patient and my medical decision-making was reviewed with the Resident Physician. I agree with the documented findings, disposition and treatment plan as described except to the extent set forth below: Patient appears in no acute distress speaking in full sentences. Heart is tachycardic, regular S1-S2. Lungs are clear, with poor respiratory effort. Plan: Patient is back to baseline and will be discharged to subacute rehabilitation. She has a very poor prognosis due to active lung cancer, diastolic heart failure and recent acute ID. Harry Gupta MD
--- NOTE | 2017-08-07 08:10 | Physician Discharge Referral ---
ExtendedCare Referral Info Transfer To: ECF Provider in Charge: Dr. Gupta Provider in Charge after Transfer: PCP Institutional Level of Care: Skilled - Diagnosis (1) Acute respiratory failure with hypoxia Priority: Primary Status: Acute (2) NSTEMI (non-ST elevated myocardial infarction) Priority: Secondary Status: Acute (3) Pneumonia Priority: Secondary Status: Acute (4) Hypomagnesemia Priority: Secondary Status: Acute (5) PAF (paroxysmal atrial fibrillation) Priority: Secondary Status: Acute (6) Lung cancer Priority: Secondary Status: Chronic (7) DVT prophylaxis Priority: Secondary Status: Acute - Transfer Medications Prescriptions: Ondansetron ODT [Zofran ODT] 4 mg SL Q6HR #30 tab.rapdis Amiodarone [Cordarone] 200 mg PO DAILY #30 tablet Atorvastatin [Lipitor] 40 mg PO HS #30 tablet Clopidogrel [Plavix] 75 mg PO DAILY #30 tablet levoFLOXacin [Levaquin] 750 mg PO DAILY #3 tablet Home Medications: Atenolol [Tenormin] 25 mg PO QAM 10/22/16 [History] Gabapentin [Neurontin] 200 mg PO HS 01/06/17 [History] Albuterol Sulfate [Ventolin Hfa] 2 puff IH Q4-6H PRN 03/12/17 [History] Budesonide/Formoterol 160/4.5 [Symbicort 160/4.5] 2 puff IH BID 03/12/17 [ History] Oxygen 1 each .ROUTE HS PRN 03/12/17 [History] Mirtazapine [Remeron] 15 mg PO HS 06/24/17 [History] Atenolol [Tenormin] 12.5 mg PO HS 07/08/17 [History] Calcium Carbonate [Calcium] 600 mg PO BID 07/08/17 [History] Cholecalciferol (D-3) [Vitamin D] 1,000 unit PO DAILY 07/08/17 [History] Multivitamin [One Daily Multivitamin] 1 tab PO DAILY 07/08/17 [History] Vitamin B Complex [B Complex] 1 tab PO DAILY 07/08/17 [History] Vitamin E Mixed [Vitamin E] 1,000 unit PO DAILY 07/08/17 [History] Amiodarone [Cordarone] 200 mg PO DAILY #30 tablet 08/07/17 [Rx] Atorvastatin [Lipitor] 40 mg PO HS #30 tablet 08/07/17 [Rx] Clopidogrel [Plavix] 75 mg PO DAILY #30 tablet 08/07/17 [Rx] Ondansetron ODT [Zofran ODT] 4 mg SL Q6HR #30 tab.rapdis 08/07/17 [Rx] levoFLOXacin [Levaquin] 750 mg PO DAILY #3 tablet 08/07/17 [Rx] Allergies/Adverse Reactions: 3 Allergy/AdvReac Type Severity Reaction Status Date / Time aspirin Allergy Unknown BLEEDING Verified 07/08/17 11:49 ULCER lidocaine [From Lidoderm] AdvReac Redness of Verified 07/08/17 11:49 Skin - Respiratory Orders Oxygen / L per min Smoking Cessation: Smoking cessation has been advised. For more information, call the [facility] Tobacco Quit Line at 8-714-COMC-NOW. - Ancillary Orders May use pressure relief devices daily prn, May go on ALYCIA w/family/respon constitution party w /meds at nurse discretion PRN, May consult with Dentist, Employee'S Representative, Can Filler PRN - Advance Directives Code Status: DNR-Comfort Care - Mobility Orders Chair, Ambulate (with walker/assistance) - Rehabiliation Orders Rehab Potential: Fair Rehab Orders: Sternal Precautions, ROM Exercises, Evaluation for Physical Therapy, Evaluation for Occupational Therapy - Treatments Skin tear care topically daily PRN per policy, May check for fecal impaction rectally daily PRN, Fleet enema rectally every other day PRN cleansing purposes - Diet Orders Regular CERTIFICATION: I certify that the transfer of the above named patient to an Extended Care Facility is necessary for the continuing treatment of the diagnosis listed. The above information is true and accurate reflection of patient's current condition. Confidential - Redisclosure prohibited without a patient's written consent.
[2017-08-07] MEDS: *HR* Amiodarone 200 MG TABLET PO SCH (08:34)
[2017-08-07] MEDS: Vitamin B Complex/Vit C/Vit E 1 EACH TABLET PO SCH (08:34)
[2017-08-07] MEDS: levoFLOXacin 750 MG TABLET PO SCH (08:34)
[2017-08-07] MEDS: Cholecalciferol (D-3) 1,000 UNIT TABLET PO SCH (08:34)
[2017-08-07] MEDS: Multivit/Ca/Min/Fe/FA 1 TAB TABLET PO SCH (08:34)
[2017-08-07] MEDS: Furosemide 20 MG TABLET PO SCH (08:35)
[2017-08-07] MEDS: Sennosides/Docusate Sodium TABLET PO SCH ×2 (08:35→20:58)
[2017-08-07] MEDS: Gabapentin 100 MG CAPSULE PO SCH (20:57)
[2017-08-07] MEDS: Mirtazapine 15 MG TABLET PO SCH (20:57)
[2017-08-08] MEDS: Ipratropium/Albuterol Neb 3 ML IH SCH ×4 (04:08→16:20)
[2017-08-08] MEDS: *HR* Heparin 5,000 UNIT/ML VIAL SQ SCH ×2 (05:54→18:33)
[2017-08-08] MEDS ORDERED: 0.9 % Sodium Chloride 500 ML IVC ONE ×2 (08:14→10:28)
--- NOTE | 2017-08-08 08:32 | Internal Med Progress Note ---
<Victor M Jean-Baptiste - Last Filed: 08/08/17 08:47> Date of Encounter: 08/08/17 Time of Encounter: 08:30 - Assessment and plan (1) Acute respiratory failure with hypoxia Current Visit: Yes Status: Acute Assessment and plan: Patient was supposed to be discharged yesterday to [facility] but there was an issue with oxygen supplies, but arrangements will be made today Patient has been on 6 L high flow today but saturating in high 90's-100, will wean down to home dose CT scan on 08/05 did reveal moderate right-sided effusion, but will not pursue thoracentesis at this time given her improved clinical status and DNR-CC Will continue supportive measures with oxygen/BiPAP, breathing treatments Discharge summary already in chart as she was medically cleared yesterday (2) Hypotension Current Visit: Yes Status: Acute Assessment and plan: Blood pressure was borderline low this morning and her Atenolol was held Will give bolus of 500 mL for now and monitor closely prior to her discharge Qualifiers: Hypotension type: hypotension due to drug Qualified Code(s): I95.2 - Hypotension due to drugs (3) NSTEMI (non-ST elevated myocardial infarction) Current Visit: Yes Status: Acute Assessment and plan: Cardiology has signed off as there as she is not candidate for C given her code status, anemia, and ASA intolerance Continue with Plavix as she has allergy to ASA given her previous ulcers Not currently complaining of chest pain (4) Pneumonia Current Visit: Yes Status: Acute Assessment and plan: Completed 10 days worth of Levaquin, but she was underdosed with 500 mg q48hr for several days Will have her continue 3 days of Levaquin at full dose upon DC Qualifiers: Pneumonia type: due to unspecified organism Laterality: bilateral Lung location: unspecified part of lung Qualified Code(s): J18.9 - Pneumonia, unspecified organism (5) PAF (paroxysmal atrial fibrillation) Current Visit: Yes Status: Acute Assessment and plan: Patient was in sinus rhythm with rates in the low 100s Will give fluid bolus this morning and continue on Amiodarone not 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 She states her breathing is fine and has no complaints of pain. She was supposed to be discharged yesterday to [facility] but there was an issue with her oxygen, but transportation has been arranged for today around noon. - Constitutional Vitals: Temp Pulse Resp BP Pulse Ox 98.1 F 105 23 79/49 100 08/08/17 07:28 08/08/17 07:28 08/08/17 07:28 08/08/17 07:28 08/08/17 07:28 General appearance: Present: pleasant, no acute distress, underweight, answers questions appropriately - Head Head exam: Present: atraumatic, normocephalic - Eye Eye exam: Present: PERRL, conjuntiva pink, sclera anicteric - Neck Neck exam general surgery: Present: supple, trachea midline. Absent: lymphadenopathy - Respiratory Respiratory exam: Present: decreased breath sounds. Absent: accessory muscle use, rales, rhonchi, wheezes - Cardiovascular Cardiovascular exam: Present: +S1, +S2, tachycardia (regular rhythm). Absent: diastolic murmur, gallop, rubs, systolic murmur - GI/Abdominal GI/Abdominal exam: Present: normal bowel sounds, soft, no peritoneal signs. Absent: distended, tenderness - Extremities Exam Extremities exam: Present: warm, radial pulses palpable and symmetrical. Absent : calf tenderness, cyanotic, pedal edema - Neurological Exam Neurological exam: Present: alert, no focal deficits. Absent: facial droop, speech deficit - Skin Skin exam: Present: dry, intact Internal Medicine: Result - Labs CBC & Chem 7: 08/07/17 03:43 08/07/17 03:43 - ABG Interpretation ABG results: PT/INR, D-dimer PT 12.7 Seconds (9.4-12.1) H 07/27/17 22:00 Consult Discharge Plan - Plan Instructions: Myocardial Infarction (DC), Heart Failure (DC), Acute Respiratory Distress Syndrome (DC), Pneumonia (DC) Additional Instructions: Please follow up with your PCP within 1 week Please follow up with cardiology within 2 weeks Referrals: [facility] [place] [Provider Group] Thuan Levine MD [Primary Care Provider] - (PATIENT IS GOING TO [facility] NO PCP APPOINTMENT NEEDED) Prescriptions: Ondansetron ODT [Zofran ODT] 4 mg SL Q6HR #30 tab.rapdis Amiodarone [Cordarone] 200 mg PO DAILY #30 tablet Atorvastatin [Lipitor] 40 mg PO HS #30 tablet Clopidogrel [Plavix] 75 mg PO DAILY #30 tablet levoFLOXacin [Levaquin] 750 mg PO DAILY #3 tablet <Harry Gupta - Last Filed: 08/08/17 17:13> Date of Encounter: 08/08/17 - Constitutional Vitals: Temp Pulse Resp BP Pulse Ox 97.9 F 105 28 89/44 94 08/08/17 11:10 08/08/17 12:35 08/08/17 16:20 08/08/17 13:03 08/08/17 16:20 Internal Medicine: Result - Labs CBC & Chem 7: 08/07/17 03:43 08/07/17 03:43 - ABG Interpretation ABG results: PT/INR, D-dimer PT 12.7 Seconds (9.4-12.1) H 07/27/17 22:00 - Attending Attestation I conducted a face to face diagnostic evaluation of this patient and my medical decision-making was reviewed with the Resident Physician. I agree with the documented findings, disposition and treatment plan as described except to the extent set forth below: Patient appears tachypneic, ill-appearing, in no acute distress. Oxygen saturation is in the mid 80s, increases to the low 90s with high flow nasal cannula. Patient has a very poor prognosis due to severe protein calorie malnutrition cancer associated cachexia, lung cancer, acute on chronic respiratory failure, congestive heart failure. I informed the patient's of the poor prognosis. He understands that the patient is terminal. Patient will be discharged back to skilled nursing. CODE STATUS is DNR CC. Harry Gupta MD
[2017-08-08] MEDS: Budesonide/Formoterol 160/4.5 MDI IH SCH (08:55)
[2017-08-08] MEDS: Multivit/Ca/Min/Fe/FA 1 TAB TABLET PO SCH (09:10)
[2017-08-08] MEDS: levoFLOXacin 750 MG TABLET PO SCH (09:10)
[2017-08-08] MEDS: Sennosides/Docusate Sodium TABLET PO SCH (09:10)
[2017-08-08] MEDS: *HR* Amiodarone 200 MG TABLET PO SCH (09:10)
[2017-08-08] MEDS: Cholecalciferol (D-3) 1,000 UNIT TABLET PO SCH (09:10)
[2017-08-08] MEDS: Vitamin B Complex/Vit C/Vit E 1 EACH TABLET PO SCH (09:10)
[2017-08-08 20:04] VITALS: BP 97/60
== END 2017-08-08 19:29 | DRG 280 ==
LOC: 2NENU → SUATTDRO 07-28 03:59 → 2NNU 08-03 14:43
PROVIDERS: ADMIT Hospitalist; ATTEND Internal Medicine